=== PATIENT | female | born 1975 | race Caucasian/White ===

== ENCOUNTER 2017-07-21 09:20 | Inpatient (IN) | payer OTHER, BC ==
[2017-07-07 09:55] VITALS: BMI 35.0
--- NOTE | 2017-07-07 10:16 | PAT Medication Instructions ---
Service Date Jul 07, 2017. Current Home Medication List Fluticasone Propionate (Nasal) (Flonase Allergy Relief), 2 SPRAYS PO PRN Multivitamin (Multivitamin), 1 TAB PO for AM Omeprazole (Prilosec), 40 MG PO BID Medication Instructions For Your Scheduled Surgery - Hold the following medications the morning of surgery: Multivitamin (Multivitamin), 1 TAB PO AM - Take the following medications the morning of surgery with a sip of water OTHERWISE NOTHING TO EAT OR DRINK AFTER MIDNIGHT: Omeprazole (Prilosec), 40 MG PO BID Fluticasone Propionate (Nasal) (Flonase Allergy Relief), 2 SPRAYS PO PRN (if needed) - Take the following medications as scheduled the night before surgery: Omeprazole (Prilosec), 40 MG PO BID Fluticasone Propionate (Nasal) (Flonase Allergy Relief), 2 SPRAYS PO PRN If you have any questions please call us at [phone] or [phone] or [phone]
--- NOTE | 2017-07-07 11:03 | DIAGNOSTIC IMAGING REPORT ---
CHEST PREADMISSION(PA/LAT) CLINICAL HISTORY: 42 years-old Female presenting with permission chest x-ray. TECHNIQUE: PA and lateral views of the chest were obtained. COMPARISON: 05/29/2015. FINDINGS: Cardiomediastinal silhouette normal. Lungs and pleural spaces clear. Osseous structures normal. Upper abdomen normal. IMPRESSION: 1. No acute cardiopulmonary disease. Electronically signed by: Jc Lal M.D. 07/07/2017 11:01 AM Dictated Date/Time: 07/07/2017 11:01 AM
[2017-07-07 11:20] LABS: BASO % 0.2 %; BASO ABS # 0.02 K/uL (0-0.2); COMPLETE YES; EOS % 2.7 %; IG% 0.5 %; LYMPH % 23.3 %; LYMPH ABS # 2.32 K/uL (1.2-3.4); MEAN CELL VOLUME 87.6 fL (80-100); MEAN CORPUSCULAR HEMOGLOBIN 29.7 pg (25-34); MEAN CORPUSCULAR HGB CONC 33.9 g/dl (32-36); MEAN PLATELET VOLUME 9.2 fL (7.4-10.4); MONO % 6.3 %; PLATELET COUNT 287 K/uL (130-400); RED BLOOD COUNT 4.34 M/uL (4.2-5.4); WHITE BLOOD COUNT 9.96 K/uL (4.8-10.8)
[2017-07-07 11:22] LABS: URINE APPEARANCE CLEAR (CLEAR); URINE BILIRUBIN NEG (NEG); URINE COLOR YELLOW; URINE NITRITE NEG (NEG); URINE SPECIFIC GRAVITY 1.018 (1.000-1.030); UROBILINOGEN NEG (NEG); ZZUR CULT IF INDIC CLEAN CATCH NO
[2017-07-07 11:26] LABS: MANUAL MICROSCOPIC REQUIRED? NO; REVIEW REQ? NO
[2017-07-07 11:33] LABS: BUN/CREATININE RATIO 14.3 (10-20); CALCIUM 9.3 mg/dl (8.5-10.1); CREATININE 0.7 mg/dl (0.60-1.20); POTASSIUM 4.2 mmol/L (3.5-5.1)
[~2017-07-21] VITALS: Ht 177.8 cm; Wt 110.1 kg
[2017-07-21] VITALS (7 sets, daily range): BP systolic 99–151; BP diastolic 64–81; PULSE 54–76; TEMP 36.4–36.5; O2SAT 96–100; Ht 177.8 cm; Wt 110.1 kg
[~2017-07-21 09:20] MED LIST: CEFAZOLIN 2000 MG/60 ML D5W IV SCH; FLUT0.15 PO; LACTATED RINGER'S 1000ML 1,000 ML IV SCH; MULT-506 PO; PRLSR20 PO
[2017-07-21] MEDS ORDERED: FENTANYL CITRATE INJ 50 MCG/1 ML 2 ML VIAL ONE ×3 (11:26→13:11)
[2017-07-21] MEDS ORDERED: MIDAZOLAM HCL 1 MG/ML 2ML VIAL ONE (11:26)
--- NOTE | 2017-07-21 11:36 | History & Physical Bridge Note ---
H&P Re-Evaluation Bridge Note: I have examined the patient, reviewed the History & Physical and in the interval since the performance of the History & Physical I have noted the following changes of clinical significance: No changes noted
--- NOTE | 2017-07-21 11:38 | History and Physical ---
History & Physical Date Jul 21, 2017. Chief Complaint Back and leg pain History of Present Illness The patient is a 42 year old female with complaints of back and leg pain Past Medical/Surgical History Medical Problems: (1) Acute low back pain (2) Anxiety (3) Dental infection (4) Esophageal obstruction due to food impaction (5) Esophageal obstruction due to food impaction (6) Food impaction of esophagus (7) Ovarian Cyst Nec/Nos (8) Peptic Ulcer Nos (9) Pneumonia, Organism Nos (10) Pyelonephritis Nos (11) RUQ abdominal pain (12) Schatzki's ring (13) Sinus infection (14) Urin Tract Infection Nos Additional History Hepatic Disease: No Endocrine Disorder: No Kidney Disease: No Hypertension: No Heart Disease: No Bleeding Tendencies: No Infectious Diseases: No Allergies Coded Allergies: Carrot (Verified Allergy, Unknown, GI SYMPTOMS, 07/21/17) Chicken Allergy (Verified Allergy, Unknown, GI UPSET, 07/21/17) Creston Oil (Verified Allergy, Unknown, GI SYMPTOMS, 07/21/17) Grape (Verified Allergy, Unknown, GI SYMPTOMS, 07/21/17) NO KNOWN DRUG ALLERGIES (Verified Allergy, Unknown, NONE, 07/21/17) Potato (Verified Allergy, Unknown, GI SYMPTOMS, 07/21/17) Home Medications Scheduled Fluticasone Propionate (Nasal) (Flonase Allergy Relief), 2 SPRAYS PO PRN Omeprazole (Prilosec), 40 MG PO BID Scheduled PRN Multivitamin (Multivitamin), 1 TAB PO for AM Physical Examination Skin: warm/dry, no rash Eyes: normal inspection, EOMI, sclerae normal ENT: normal ENT inspection, pharynx normal Head: normocephalic, atraumatic Neck: supple, no adenopathy, trachea midline Respiratory/Chest: lungs clear, normal breath sounds, no respiratory distress Cardiovascular: regular rate, rhythm, no edema, no murmur Abdomen / GI: normal bowel sounds, non tender Back: normal inspection Extremities: normal inspection, normal range of motion Neurologic/Psych: no motor/sensory deficits, alert, normal reflexes, oriented x 3 Diagnosis Lumbar spinal stenosis Plan of Treatment Lumbar decompression fusion L5-S1
[2017-07-21] MEDS ORDERED: BUPIVACAINE/EPINEPHRINE 0.5% MPF 1:200,000 30 ML VIAL ONE (12:02)
[2017-07-21] MEDS ORDERED: BACITRACIN 50000 UNIT VIAL ONE (12:02)
[2017-07-21] MEDS ORDERED: HYDROmorphone INJ 2 MG/ML SYR/VIAL ONE ×2 (12:33→13:42)
[2017-07-21] MEDS ORDERED: ROCURONIUM BROMIDE 10 MG/ML 5 ML VIAL IV ONE (12:54)
[2017-07-21] MEDS ORDERED: PROPOFOL IV EMULSION 10 MG/ML 20 ML VIAL IV ONE (12:54)
[2017-07-21] MEDS ORDERED: DEXAMETHASONE SOD INJ 4 MG/ML VIAL ONE (12:54)
[2017-07-21] MEDS ORDERED: LIDOCAINE HCL 2% 2 ML VIAL (20MG/ML) ONE (12:54)
[2017-07-21] MEDS ORDERED: ONDANSETRON INJ 2 MG/ML 2 ML VIAL ONE (12:54)
[2017-07-21] MEDS ORDERED: FLOSEAL HEMOSTATIC MATRIX 10ML TOP ONE (13:35)
[2017-07-21] MEDS ORDERED: SODIUM CHLORIDE 0.9% 1000ML 1,000 ML IV SCH (13:42)
[2017-07-21] MEDS ORDERED: KETOROLAC TROMETHAMINE 30 MG/ML VIAL ONE (13:43)
[2017-07-21] MEDS ORDERED: GLYCOPYRROLATE INJ 0.2 MG/ML VIAL ONE (13:43)
[2017-07-21] MEDS ORDERED: NEOSTIGMINE METHYLSULFATE 1 MG/ML 10ML VIAL ONE (13:43)
[2017-07-21] MEDS ORDERED: hydrOXYzine HCL 25 MG TAB PO PRN (13:45)
[2017-07-21] MEDS ORDERED: SOD PHOSPHATE/SOD BIPHOSPHATE ENEMA 132 ML BTL PR PRN (13:45)
[2017-07-21] MEDS ORDERED: DO NOT ADMINISTER PNEUMOCOCCAL VACCINE PRN ×2 (13:45)
[2017-07-21] MEDS ORDERED: PROMETHAZINE HCL INJ 12.5 MG in SODIUM CHLORIDE 0.9% 50ML 50 ML IV PRN ×2 (13:45→14:15)
[2017-07-21] MEDS ORDERED: ALUMINUM/MAGNESIUM SUSP 30 ML UDC PO PRN (13:45)
[2017-07-21] MEDS ORDERED: ACETAMINOPHEN 500 MG TAB PO PRN (13:45)
[2017-07-21] MEDS ORDERED: ATROPINE SULFATE 0.1 MG/ML 5ML SYR IV PRN (13:45)
[2017-07-21] MEDS ORDERED: MAGNESIUM HYDROXIDE SUSP 30 ML UDC PO PRN (13:45)
[2017-07-21] MEDS ORDERED: LORAZEPAM 0.5 MG TAB PO PRN (13:45)
[2017-07-21] MEDS ORDERED: NALOXONE HCL 0.4 MG/1 ML VIAL/CARP IV PRN ×2 (13:45)
[2017-07-21] MEDS ORDERED: BISACODYL 10 MG SUPP PR PRN (13:45)
[2017-07-21] MEDS ORDERED: METOCLOPRAMIDE HCL INJ 5 MG/ML 2 ML VIAL IV PRN (13:45)
[2017-07-21] MEDS ORDERED: DO NOT ADMINISTER FLU VACCINE PRN ×3 (13:45)
[2017-07-21] MEDS ORDERED: ONDANSETRON INJ 2 MG/ML 2 ML VIAL IV PRN (13:45)
[2017-07-21] MEDS ORDERED: FLUTICASONE PROPIONATE NA SPR 16 GM BTL PRN (13:45)
[2017-07-21] MEDS ORDERED: LORAZEPAM INJ 0.5 MG in SYRINGE 0 ML IV PRN (13:45)
[2017-07-21] MEDS ORDERED: ACETAMINOPHEN IV 100 ML IV PRN (13:45)
[2017-07-21] MEDS ORDERED: FAMOTIDINE 20 MG TAB PO PRN (13:45)
[2017-07-21] MEDS ORDERED: LABETALOL HCL IV 5 MG/ML 20ML IV PRN (13:45)
--- NOTE | 2017-07-21 13:48 | [facility] Operative Report ---
Operative Report Operative Date Jul 21, 2017. Pre-Operative Diagnosis Lumbar Spinal Stenosis Post-Operative Diagnosis Lumbar Spinal Stenosis Procedure(s) Performed #1 lumbar decompression medial facetectomy foraminotomies L5-S1. #2 posterior spinal fusion L5-S1. #3 placement posterior instrumentation L5-S1. #4 interbody fusion L5-S1. #5 placement peek cage 12 x 22 mm L5-S1. #6 placement locally harvested morcellized autograft in the posterior lateral gutters. #7 placement of ostial amp bone graft in the interbody space and posterior lateral gutters. Surgeon Dr. Whitman Blow Mold Operator Surgeon(s) ALISA Avelar Estimated Blood Loss 125ml Findings Lumbar spinal stenosis Specimens none per surgeon Description of Procedure Patient was met with preoperatively case discussed all questions are dressed. After informed consent patient was taken to the operative suite and underwent intubation placed in a prone position on the Bland table top Olaf frame. All bony prominences were well-padded eyes inspected to ensure no external pressure. This point the lumbar spines prepped draped in the normal sterile fashion. Sharp dissection with the assistance of Bovie cautery was performed onto an exposing the lamina and transverse processes of L5 and the sacral alar bilaterally. From a caudal to cephalad fashion complete laminectomy of L5 was performed including medial facetectomies foraminotomies. Pedicle screws were then placed in L5 and S1 levels bilaterally with assistance of fluoroscopy and the probably size carlos placed through a transforaminal approach on the left complete discectomy of L5-S1 was performed and plate created to subcortical bleeding bone and a 12 x 22 mm peek cage filled with ostial amp tapped into position. The rods were then compressed locked and final position bilaterally. The transverse processes of L5 and sacral alar burred to subcortical bleeding bone. Remaining ostial amp and local harvested morcellized autograft was placed in the posterior gutters. 15 round THOMAS drain inserted. Incision closed with 1 Vicryl in the fascia 2-0 Vicryl subcutaneous C 4 Monocryl for final skin closure Steri-Strip sterile dressing placed patient we can taken to PACU stable condition. Please note Mable Carson was present throughout the entire procedure involved in patient positioning complex portions of the surgery and final skin closure. I attest to the content of the Intraoperative Record and any orders documented therein. Any exceptions are noted below.
--- NOTE | 2017-07-21 13:52 | DIAGNOSTIC IMAGING REPORT ---
Radiology LUMBAR SPINE 2 OR 3 VIEW CLINICAL HISTORY: 42 years-old Female presenting with L5-S1 TRANSFORAMINAL LUMBAR INTERBODY FUSION. TECHNIQUE: 2 fluoroscopic spot image(s) obtained as part of an intraoperative procedure. COMPARISON: MRI from 03/22/2017. FINDINGS/IMPRESSION: Interval bilateral transpedicular plate and screw fixation of L5-S1 with discectomy and interbody spacer. L5 laminectomy defect also suggested. Normal anatomic alignment. Please see surgical report for further details. Fluoroscopy dosage (mGy): Not available. Fluoroscopy time: 15 seconds. Number of fluoroscopic spot images: 2. Electronically signed by: Jc Lal M.D. 07/21/2017 1:51 PM Dictated Date/Time: 07/21/2017 1:50 PM
[2017-07-21] MEDS ORDERED: METOCLOPRAMIDE HCL INJ 5 MG/ML 2 ML VIAL ONE (14:06)
[2017-07-21] MEDS ORDERED: SCOPOLAMINE 1.5 MG TDSY TD ONE (14:08)
[2017-07-21] MEDS ORDERED: HYDROmorphone HCL 0.5MG/ML 50 ML CASSETTE ONE (14:09)
[2017-07-21] MEDS: HYDROmorphone INJ 2 MG/ML SYR/VIAL IV PRN ×2 (14:29→14:42)
[2017-07-21] MEDS: HYDROmorphone HCL 0.5MG/ML 50 ML CASSETTE IV PRN ×3 (14:34→18:59)
--- NOTE | 2017-07-21 14:42 | Anesthesiology Progress Note ---
Anesthesia Post Op Note Date & Time Jul 21, 2017 at 14:42 Vital Signs Vital Signs Past 12 Hours Date Time Temp Pulse Resp B/P (MAP) Pulse Ox O2 Delivery O2 Flow Rate FiO2 07/21/17 14:36 120/64 07/21/17 14:34 52 16 07/21/17 14:34 53 16 100 07/21/17 14:32 103/57 07/21/17 14:29 55 15 07/21/17 14:29 55 15 100 07/21/17 14:27 102/63 07/21/17 14:24 70 17 100 07/21/17 14:24 70 17 07/21/17 14:21 98/57 07/21/17 14:19 72 15 100 07/21/17 14:19 73 15 07/21/17 14:16 97/56 07/21/17 14:14 67 20 07/21/17 14:14 67 20 94 07/21/17 14:11 120/63 07/21/17 14:09 74 17 07/21/17 14:09 74 17 95 07/21/17 14:06 119/87 07/21/17 14:05 120/71 07/21/17 14:04 85 07/21/17 14:04 85 91 07/21/17 14:04 36.3 84 16 119/87 98 Oxymask 10 07/21/17 10:00 36.5 73 20 151/81 100 Room Air Notes Mental Status: alert / awake / arousable, participated in evaluation Pt Amnestic to Procedure: Yes Nausea / Vomiting: adequately controlled, improving with treatment Pain: adequately controlled Airway Patency, RR, SpO2: stable & adequate BP & HR: stable & adequate Hydration State: stable & adequate Anesthetic Complications: no major complications apparent
[2017-07-21] MEDS: LACTATED RINGER'S 1000ML 1,000 ML IV SCH ×2 (16:07→20:40)
[2017-07-21] MEDS: ONDANSETRON INJ 2 MG/ML 2 ML VIAL IV PRN (18:32)
[2017-07-21] MEDS: CEFAZOLIN IV 2,000 MG in DEXTROSE 5% 50ML 50 ML IV SCH (20:31)
[2017-07-21] MEDS: PANTOprazole SOD 40 MG TAB PO SCH (20:32)
[2017-07-21] MEDS: DOCUSATE SODIUM/SENNA 50/8.6MG TAB PO SCH (20:32)
[2017-07-21] MEDS: DEXAMETHASONE INJ 6 MG in SYRINGE 0 ML IV SCH (20:32)
[2017-07-22] MEDS: LACTATED RINGER'S 1000ML 1,000 ML IV SCH (03:04)
[2017-07-22] MEDS: CEFAZOLIN IV 2,000 MG in DEXTROSE 5% 50ML 50 ML IV SCH (03:04)
[2017-07-22 03:06] VITALS: BP 94/60; PULSE 50; TEMP 36.7; O2SAT 94
[2017-07-22] MEDS: DEXAMETHASONE INJ 6 MG in SYRINGE 0 ML IV SCH ×2 (03:58→13:12)
[2017-07-22] MEDS ORDERED: NURSING VERBAL MED ORDER ONE (06:00)
[2017-07-22] MEDS ORDERED: HYDROmorphone INJ 1 MG/ML SYR IV PRN (06:00)
[2017-07-22] MEDS ORDERED: DC PCA SCH (06:00)
[2017-07-22] MEDS ORDERED: HYDROmorphone INJ 0.5 MG/0.5 ML SYR IV PRN (06:00)
[2017-07-22 06:01] LABS: COMPLETE YES; HEMATOCRIT 35.1 % (37-47); IG% 0.2 %; LYMPH % 5.6 %; LYMPH ABS # 0.78 K/uL (1.2-3.4); MEAN CELL VOLUME 87.8 fL (80-100); MEAN CORPUSCULAR HEMOGLOBIN 28.8 pg (25-34); MEAN CORPUSCULAR HGB CONC 32.8 g/dl (32-36); MEAN PLATELET VOLUME 9.8 fL (7.4-10.4); MONO % 3.8 %; NEUT % 90.4 %; PLATELET COUNT 223 K/uL (130-400); WHITE BLOOD COUNT 13.83 K/uL (4.8-10.8)
[2017-07-22 06:37] LABS: BUN/CREATININE RATIO 18.8 (10-20); CALCIUM 8.5 mg/dl (8.5-10.1); CREATININE 0.59 mg/dl (0.60-1.20)
[2017-07-22 07:15] VITALS: BP 104/66; PULSE 51; TEMP 36.6; O2SAT 98
[2017-07-22] MEDS: ONDANSETRON INJ 2 MG/ML 2 ML VIAL IV PRN (07:24)
[2017-07-22] MEDS: PANTOprazole SOD 40 MG TAB PO SCH ×2 (07:24→21:25)
--- NOTE | 2017-07-22 08:24 | Anesthesiology Progress Note ---
Anesthesia Post Op Note Date & Time Jul 22, 2017 at 08:22 Vital Signs Pain Intensity: 7.5 Vital Signs Past 12 Hours Date Time Temp Pulse Resp B/P (MAP) Pulse Ox O2 Delivery O2 Flow Rate FiO2 07/22/17 07:45 Room Air 07/22/17 07:15 36.6 51 19 104/66 (79) 98 Room Air 07/22/17 03:06 36.7 50 16 94/60 (71) 94 Room Air 07/21/17 23:20 36.5 76 18 99/64 (76) 96 Room Air Notes Mental Status: alert / awake / arousable, participated in evaluation Pt Amnestic to Procedure: Yes Nausea / Vomiting: adequately controlled, improving with treatment Pain: adequately controlled Airway Patency, RR, SpO2: stable & adequate BP & HR: stable & adequate Hydration State: stable & adequate Anesthetic Complications: no major complications apparent pt c/o N/V related to severe pain due to not being able to tolerate narcotics. Improved with pain improvement s/p antiinflammatories per patient. N/V not r/t anesthetic.
[2017-07-22] MEDS ORDERED: RXC5 PO (09:23)
--- NOTE | 2017-07-22 09:24 | Discharge Instructions ---
Discharge Instructions Date of Service Jul 22, 2017. Admission Reason for Admission: Spinal Stenosis Discharge Discharge Diagnosis / Problem: lumbar stenosis Discharge Goals Goal(s): Improve function Activity Recommendations Activity Limitations: per Instructions/Follow-up section . Instructions / Follow-Up Instructions / Follow-Up ACTIVITY RECOMMENDATIONS: SELF CARE INSTRUCTIONS AFTER THORACIC/LUMBAR FUSIONS 1. You may walk to your tolerance. It is good exercise for your legs and back. Expect some back and intermittent leg aches and pains. 2. You may perform "counter-top" level activities (make a sandwich, janki with a project, etc.). 3. No bending or lifting of more than 10 pounds or back twisting of any nature (roll like a log when turning in bed). 4. You may ride in a car for 20-30 minutes at a time. No driving until after your first visit with your doctor. 5. Frequent changes of position and restricting sitting to 30 minutes at a time will help limit the amount of back spasms and stiffness you may experience. 6. You may discontinue the use of ambulatory aids (cane, crutches, etc.) once your strength and confidence allow. 7. You may loan administrator the shower and let water strike your incision when you arrive home at least once daily. Do not take a tub bath, sit in a hot tub or go into a swimming pool until after your first recheck in the office. SPECIAL CARE INSTRUCTIONS: VERY IMPORTANT TO READ AND REVIEW A. Your surgical incision has been closed with a cosmetic suture under the skin that will dissolve in about 6 weeks. In 14 days, you can use a pair of clean scissors and cut the suture that is left outside of the skin at the ends of your incision. 1. The small skin tapes can be removed 7 days after surgery if they have not fallen off by that point. 2. You may keep the wound open to air as much as possible to promote healing after post-op day number 5 unless told otherwise by your doctor. 3. If you think the wound looks like it is becoming infected (redness or worsening drainage) and/or you are experiencing fever, chill or worsening back pain and muscle spasms, contact the office so that we may evaluate you as soon as possible. B. Complications are uncommon, but please contact us if you have any signs or symptoms of: 1. wound infection (fever higher than 102.5 degrees F, redness, separation of wound, drainage, or increasing pain from the incision) 2. blood clots in legs (pain, swelling, redness and warmth in legs) 3. urinary tract infection (fever higher than 102.5 degrees F, burning upon urination or increased frequency of urination) 4. nerve problems (inability to walk on your toes or heels, numbness, loss of bowel or bladder control) 5. any other symptoms that concern you C. Please call the office at if you have any concerns or questions about your operation or recovery. D. No smoking! Smoking drastically decreases the chance of a solid fusion. E. Do not take any anti-inflammatory medications (Indocin, Advil, Motrin, Aspirin, Naprosyn, etc.) as these may inhibit the chance of a solid fusion. Tylenol is okay to take for pain. MANAGING PAIN AFTER SPINAL SURGERY 1. Narcotic medication is intended for short-term use and will be provided for surgical pain. Surgical pain usually lasts for a period of 4-6 weeks. Narcotic medication includes Percocet, Vicodin, Darvocet, Tylenol #3 or Lortab. 2. Longer-term pain is more appropriately treated with non-narcotic medication such as Tylenol ES. 3. Muscle spasm is not appropriately treated with narcotics. Muscle relaxers such as Soma, Flexeril or Skelaxin can be used along with Tylenol ES. 4. Remember that we all live with some "aches and pains". This is not unusual or uncommon after an injury or as we get older. a. Back pain is expected and may include muscle spasms for 4 to 6 weeks after surgery. The pain should gradually improve. If the pain worsens for no apparent reason, please contact the office. b. Intermittent leg pain may also be experienced and should not be concerned about unless it worsens for no apparent reason. If so, please contact the office. 5. We will provide appropriate medication within the normal guidelines of their prescribed use. We will also be very cautious and aware of potential abuse and extended duration of patients' medication needs. a. Pain medications are for your comfort and to assist with sleep and rest so that the tissue can heal. They are not provided in order to return to normal activity and should not be used through the day. To do so or worsening pain at night can result from ongoing tissue damage and development of tolerance to the prescribed medicine. 6. Please allow 2-3 days to process refills. Prescriptions will not be mailed but must be picked up at the office. FOLLOW UP VISIT: Keep your scheduled follow-up appointment. Any questions, please call the office at . Current Hospital Diet Patient's current hospital diet: Regular Diet Discharge Diet Recommended Diet: Regular Diet Procedures Procedures Performed: #1 lumbar decompression medial facetectomy foraminotomies L5-S1. #2 posterior spinal fusion L5-S1. #3 placement posterior instrumentation L5-S1. #4 interbody fusion L5-S1. #5 placement peek cage 12 x 22 mm L5-S1. #6 placement locally harvested morcellized autograft in the posterior lateral gutters. #7 placement of ostial amp bone graft in the interbody space and posterior lateral gutters. Pending Studies Studies pending at discharge: no Medical Emergencies . Who to Call and When: Medical Emergencies: If at any time you feel your situation is an emergency, please call 911 immediately. . Non-Emergent Contact Non-Emergency issues call your: Primary Care Provider . "Provider Documentation" section prepared by Mike Whitman. . VTE Core Measure Inpt VTE Proph given/why not?: Katelyn uJdd, KANE's
[2017-07-22] MEDS: OXYCODONE HCL IR 5 MG TAB (IMMEDIATE RELEASE) PO PRN ×4 (09:48→23:41)
[2017-07-22 11:37] VITALS: BP 112/74; PULSE 55; O2SAT 100
--- NOTE | 2017-07-22 12:33 | Progress Note ---
Progress Note Date of Service Jul 22, 2017. Progress Note Patient's back pain is controlled. Leg pain markedly improved. Vital signs are stable. THOMAS drain decreasing appropriate. On exam she is ambulating halls comfortably as good strength testing. Assessment status post lumbar decompression fusion. Planned this time continue advance physical therapy anticipate possible home tomorrow.
[2017-07-22 15:01] VITALS: BP 132/84; PULSE 69; TEMP 36.8; O2SAT 100
[2017-07-22] MEDS: DOCUSATE SODIUM/SENNA 50/8.6MG TAB PO SCH (21:00)
[2017-07-22 23:15] VITALS: BP 106/66; PULSE 59; TEMP 36.7; O2SAT 98
[2017-07-23] MEDS ORDERED: POLYETHYLENE (MIRALAX) 17 GM PACK PO SCH (06:00)
[2017-07-23 06:01] VITALS: BP 106/69; PULSE 55; TEMP 36.7; O2SAT 97
[2017-07-23] MEDS: PANTOprazole SOD 40 MG TAB PO SCH (07:15)
[2017-07-23] MEDS: OXYCODONE HCL IR 5 MG TAB (IMMEDIATE RELEASE) PO PRN (07:15)
--- NOTE | 2017-07-23 09:19 | Discharge Summary ---
Orthopedic Discharge Summary Admission Date/Reason Jul 21, 2017 at 12:00 Spinal Stenosis. Discharge Date/Disposition Jul 23, 2017 Home Diagnosis Principal Diagnosis: Lumbar spinal stenosis Admission Physical Exam As per Admitting History & Physical. Hospital Course Patient underwent lumbar decompression fusion tolerated this well as taken to the orthopedic floor postoperatively. Postoperative day #1 to is up in amatory leg pain markedly improved progressed through postop day #2. THOMAS drain decreasing appropriate. Subsequently discharged home. Discharge orders and instructions found the chart for further review. Discharge Instructions Please refer to the electronic Patient Visit Report (Discharge Instructions) for additional information.
[2017-07-23 09:28] VITALS: BP 106/69; PULSE 55; TEMP 36.7; O2SAT 97
== END 2017-07-23 10:50 | disposition home or self-care (01) | DRG 460 ==
LOC: C.ACU 09:20 → C.3E 12:00 → ENRESERV 15:03
PROVIDERS: ADMIT Orthopaedic Surgery Orthopaedic Surgery of the Spine; ATTEND Orthopaedic Surgery Orthopaedic Surgery of the Spine
PROC: 0SG30AJ Fusion of Lumbosacral Joint with Interbody Fusion Device, Posterior Approach, Anterior Column, Open Approach (ICD-10-PCS; principal; 2017-07-21 11:45)
PROC: 0SG3071 Fusion of Lumbosacral Joint with Autologous Tissue Substitute, Posterior Approach, Posterior Column, Open Approach (ICD-10-PCS; principal; 2017-07-21 11:45)
PROC: 0ST40ZZ Resection of Lumbosacral Disc, Open Approach (ICD-10-PCS; principal; 2017-07-21 11:45)
DX: M48.06 Spinal stenosis, lumbar region (principal); Z79.899 Other long term (current) drug therapy; Z87.01 Personal history of pneumonia (recurrent); Z87.440 Personal history of urinary (tract) infections; Z87.11 Personal history of peptic ulcer disease

== ENCOUNTER 2017-07-25 15:54 | Inpatient (IN) | payer OTHER, BC ==
[~2017-07-25] VITALS: Ht 177.8 cm; Wt 109.0 kg
[~2017-07-25 15:54] MED LIST changes: -CEFAZOLIN 2000 MG/60 ML D5W IV SCH; -LACTATED RINGER'S 1000ML 1,000 ML IV SCH; +RXC5 PO
[2017-07-25] MEDS ORDERED: HYDROmorphone INJ 1 MG/ML SYR IV STA ×3 (16:46→23:14)
[2017-07-25] MEDS ORDERED: SODIUM CHLORIDE 0.9% 1000ML 1,000 ML IV ONE (16:46)
[2017-07-25] MEDS ORDERED: ONDANSETRON INJ 2 MG/ML 2 ML VIAL IV STA (16:46)
[2017-07-25] MEDS ORDERED: ONDA8TAB6 PO (16:51)
--- NOTE | 2017-07-25 16:52 | EMERGENCY ROOM VISIT NOTE ---
History Report prepared by Godfrey: Nahid Humphrey Under the Supervision of: Dr. Gianni Kiran M.D. First contact with patient: 16:35 Chief Complaint: FEVER Stated Complaint: PAIN, NAUSEA, FEVER History of Present Illness The patient is a 42 year old female who presents to the Emergency Room with complaints of a fever that began yesterday. The patient's temperature has been fluctuating between 37.2 C and 38.9 C. Her temperature currently is 37.3 C. 1 week ago, the patient had an L5-S1 fusion procedure. Yesterday, the pain in her back began to worsen. She also began to develop a fever at this time as well. She has been taking Tylenol to try to alleviate her pain and reduce her fever. She is nauseated and is experiencing episodes of vomiting. Her wound is only draining small amounts today. She is also having abdominal cramping from vomiting and body aches. She denies any chest pain. Her back pain worsens with deep inhalation. Source of History: patient Onset: yesterday Position: other (Global) Symptom Intensity: 37.2 C - 38.8 C Quality: other (Fever) Timing: waxes/wanes Associated Symptoms: + nausea, + vomiting, + abdominal pain (cramping), + back pain, No chest pain Review of Systems See HPI for pertinent positives & negatives. A total of 10 systems reviewed and were otherwise negative. Past Medical & Surgical Medical Problems: (1) Acute low back pain (2) Anxiety (3) Dental infection (4) Esophageal obstruction due to food impaction (5) Esophageal obstruction due to food impaction (6) Food impaction of esophagus (7) Lumbar stenosis with neurogenic claudication (8) Ovarian Cyst Nec/Nos (9) Peptic Ulcer Nos (10) Pneumonia, Organism Nos (11) Pyelonephritis Nos (12) RUQ abdominal pain (13) Schatzki's ring (14) Sinus infection (15) Urin Tract Infection Nos Family History Diabetes mellitus FH: gallbladder disease Kidney disease Kidney stones Social History Smoking Status: Never Smoker Alcohol Use: occasionally Drug Use: none Marital Status: in relationship Housing Status: lives with family Occupation Status: employed Current/Historical Medications Scheduled Omeprazole (Prilosec), 40 MG PO BID Scheduled PRN Ondansetron Hcl (Zofran), 8 MG PO for Nausea Oxycodone HCl (Oxycodone HCl), 5-10 MG PO Q4H PRN for Moderate - severe pain Allergies Coded Allergies: NO KNOWN DRUG ALLERGIES (Verified Allergy, Unknown, NONE, 07/25/17) Carrot (Verified Adverse Reaction, Unknown, GI SYMPTOMS, 07/25/17) Chicken Allergy (Verified Adverse Reaction, Unknown, GI UPSET, 07/25/17) [place] Oil (Verified Adverse Reaction, Unknown, GI SYMPTOMS, 07/25/17) Grape (Verified Adverse Reaction, Unknown, GI SYMPTOMS, 07/25/17) Potato (Verified Adverse Reaction, Unknown, GI SYMPTOMS, 07/25/17) Physical Exam Vital Signs Date Time Temp Pulse Resp B/P (MAP) Pulse Ox O2 Delivery O2 Flow Rate FiO2 07/25/17 23:31 76 18 122/58 92 Room Air 07/25/17 22:24 83 18 116/73 94 Room Air 07/25/17 20:23 78 18 108/65 98 Room Air 07/25/17 19:31 78 18 124/71 98 Room Air 07/25/17 18:24 83 18 107/54 94 Room Air 07/25/17 17:59 88 18 113/66 95 Room Air 07/25/17 17:13 Room Air 07/25/17 15:59 37.3 96 20 130/84 100 Room Air Physical Exam GENERAL: Patient is a healthy-appearing well-nourished female HEAD: Normocephalic atraumatic EYES: Ocular movements intact pupils equal and react to light OROPHARYNX mucous membranes are moist no exudates present no erythema or edema present NECK: Supple no nuchal rigidity CHEST: Good equal expansion LUNGS: Clear and equal to auscultation CARDIAC: Normal S1 and S2 ABDOMEN: Soft nontender no guarding BACK: Serosanguineous fluid from the surgical site on the lower back. Healing well. EXTREMITIES: No pain upon palpation normal muscle strength in all groups no clubbing cyanosis or edema NEURO: Patient is following commands and answering questions appropriately. Alert and oriented x3 Cranial Nerves 2-12 grossly intact Medical Decision & Procedures ER Provider Diagnostic Interpretation: Radiology results as stated below per my review and radiologist interpretation: CHEST ONE VIEW PORTABLE CLINICAL HISTORY: Sepsis. COMPARISON STUDY: Chest radiograph July 07, 2017. FINDINGS: The patient is moderately rotated. No pneumothorax or pleural effusion is present. There is apparent pulmonary vascular congestion. Study is compromised by suboptimal penetration with motion artifact. Cardiac size is at the upper limits of normal. Apparent hazy left basilar opacity is likely artifactual. IMPRESSION: 1. Rotated study with suboptimal penetration. 2. Prominent vasculature. This could be due to hypoventilatory study or pulmonary vascular congestion. 3. Apparent hazy left basilar opacity. Artifact is favored although consolidation could appear similar. Electronically signed by: Harjinder Branch M.D. 07/25/2017 5:39 PM Dictated Date/Time: 07/25/2017 5:37 PM (CHEST FOR PE) ANGIO WITH CT DOSE: 514.88 mGy.cm HISTORY: 42 years-old Female presents with acute fever with history of recent back surgery. Initial exam. TECHNIQUE: Multiple CTA images of the chest were obtained after the intravenous administration of 77 mL Optiray 320. Coronal and sagittal MIPS were obtained from the axial data set and were submitted for review. A dose lowering technique was utilized adhering to the principles of ALARA. COMPARISON: Chest CT 05/29/2015 and 06/05/2009. FINDINGS: CTA: Heart is normal in size without pericardial effusion. Thoracic aorta is normal in course and caliber without dissection or aneurysm. The pulmonary arterial tree appears unremarkable. CT CHEST: No dominant thyroid nodule is seen. No pathologically adenopathy by CT size criteria. There is no pneumothorax, pleural effusion or focal airspace consolidation. There is a focal 6 mm pulmonary nodule of the left lower lobe, unchanged dating back to 06/05/2009 suggesting benign etiology. The imaged upper abdominal structures are normal. The osseous structures appear intact. IMPRESSION: No acute intrathoracic abnormality identified, specifically no acute aortic pathology or evidence of pulmonary thromboembolic disease. The above report was generated using voice recognition software. It may contain grammatical, syntax or spelling errors. Electronically signed by: Olman Mosquera M.D. 07/25/2017 7:07 PM Dictated Date/Time: 07/25/2017 6:57 PM MRI OF THE LUMBAR SPINE WITHOUT CONTRAST CLINICAL HISTORY: Low back pain radiating into right lower extremity. Fever. Recent lumbar spine surgery. COMPARISON STUDY: Lumbar spine MRI March 22, 2017 and lumbar spine fluoroscopic images of July 21, 2017. TECHNIQUE: Utilizing a 1.5 [place] magnet and dedicated coil, multiplanar, multiecho imaging of the lumbar spine was performed without IV contrast. FINDINGS: For purposes of numbering on this exam, the L5-S1 disc space is assigned to axial image 27 of 30. There are post surgical findings consistent with an L5-S1 discectomy with interbody spacer placement. There are bilateral pedicle screws at the L5 and S1 levels. Note is made of a multiloculated laminectomy bed fluid collection at the left L5-S1 level that measures approximately 2.3 x 2.6 x 1 cm. Smaller adjacent components are noted. This has moderate mass effect upon the inferior thecal sac. Note is made of an additional intracanalicular T2 hyperintense, T1 hypointense fluid collection within the right posterolateral aspect of the canal extending from the L1-L3 levels. This collection measures approximately 5.3 x 1.4 x 0.6 cm. This has mass effect upon the adjacent nerve roots. This could be either subdural or epidural in location. No additional fluid collections are present. Vertebral body heights are maintained. Conus terminates at the T12-L1 level. Note is made of moderate distention of the bladder. IMPRESSION: 1. Status post L5-S1 discectomy and bilateral pedicle screw fusion with laminectomy. Multiloculated 2.6 x 2.3 x 1 cm laminectomy bed fluid collection with moderate mass effect upon the inferior thecal sac. This is nonspecific in the early postoperative setting and could reflect a seroma or pseudomeningocele. A resolving hematoma could appear similar. 2. Additional intracanalicular fluid collection within the right posterolateral aspect of the canal extending from the L1-L3 levels which measures approximately 5.3 x 1.4 x 0.6 cm. This collection appears to be subdural in location although an epidural fluid collection could appear similar. This is nonspecific and could reflect a pseudomeningocele/subdural hygroma seen in the setting of a dural injury. An epidural hematoma or less likely abscess could appear similar. Close clinical monitoring is recommended. If progressive symptoms, a short-term follow-up MRI is recommended. 3. Moderate distention of the bladder. Electronically signed by: Harjinder Branch M.D. 07/25/2017 10:55 PM Dictated Date/Time: 07/25/2017 10:34 PM Laboratory Results Test 07/25/17 00:00 07/25/17 17:30 07/25/17 18:24 Urine Color YELLOW Urine Appearance CLEAR (CLEAR) Urine pH 8.0 (4.5-7.5) Urine Specific [place] 1.016 (1.000-1.030) Urine Protein NEG (NEG) Urine Glucose (UA) NEG (NEG) Urine Ketones TRACE (NEG) Urine Occult Blood TRACE (NEG) Urine Nitrite NEG (NEG) Urine Bilirubin NEG (NEG) Urine Urobilinogen NEG (NEG) Urine Leukocyte Esterase NEG (NEG) Urine WBC (Auto) 0 /hpf (0-5) Urine RBC (Auto) 0-4 /hpf (0-4) Urine Hyaline Casts (Auto) 0 /lpf (0-5) Urine Epithelial Cells (Auto) 10-20 /lpf (0-5) Urine Bacteria (Auto) NEG (NEG) Erythrocyte Sedimentation Rate 23 mm/hr (0-21) Prothrombin Time 10.5 SECONDS (9.0-12.0) Prothromb Time International Ratio 1.0 (0.9-1.1) Activated Partial Thromboplast Time 25.0 SECONDS (21.0-31.0) Partial Thromboplastin Ratio 1.0 Total Bilirubin 0.9 mg/dl (0.2-1) Aspartate Amino Transf (AST/SGOT) 35 U/L (15-37) Alanine Aminotransferase (ALT/SGPT) 55 U/L (12-78) Alkaline Phosphatase 86 U/L (45-117) C-Reactive Protein 7.25 mg/dl (0-0.29) Total Protein 7.2 gm/dl (6.4-8.2) Albumin 3.5 gm/dl (3.4-5.0) Globulin 3.7 gm/dl (2.5-4.0) Albumin/Globulin Ratio 0.9 (0.9-2) Bedside Lactic Acid Venous 0.79 mmol/L (0.90-1.70) Labs reviewed by ED physician. Medications Administered Medications (Trade) Dose Ordered Sig/Naveen Route Start Time Stop Time Status Last Admin Dose Admin Sodium Chloride 1,000 ml @ 999 mls/hr Q1H1M ONCE IV 07/25/17 16:46 07/25/17 17:46 DC 07/25/17 17:46 999 MLS/HR Hydromorphone HCl (Dilaudid Inj) 1 mg NOW STAT IV 07/25/17 16:46 07/25/17 16:49 DC 07/25/17 17:46 1 MG Ondansetron HCl (Zofran Inj) 4 mg NOW STAT IV 10/2/17 16:46 07/25/17 16:49 DC 07/25/17 17:46 4 MG Promethazine HCl 25 mg/Sodium Chloride 51 ml @ 204 mls/hr NOW STAT IV 07/25/17 18:32 07/25/17 18:46 DC 07/25/17 18:57 204 MLS/HR Hydromorphone HCl (Dilaudid Inj) 1 mg NOW STAT IV 07/25/17 19:30 07/25/17 19:32 DC 07/25/17 19:41 1 MG Hydromorphone HCl (Dilaudid Inj) 1 mg NOW STAT IV 07/25/17 23:14 07/25/17 23:15 DC 07/25/17 23:24 1 MG ECG Indication: nausea Rate (beats per minute): 89 Rhythm: normal sinus Findings: no acute ischemic change, no ectopy ED Course 1635: Past medical records reviewed. The patient was evaluated in room C5. A complete history and physical examination was performed. 1646: Ordered Zofran Inj 4 mg IV, Dilaudid Inj 1 mg IV, Sodium Chloride 1000 ml @ 999 mls/hr 1832: Ordered Promethazine HCl 25 mg/Sodium Chloride 51 ml @ 204 mls/hr IV 1930: Ordered Dilaudid Inj 1 mg IV 2314: Ordered Dilaudid Inj 1 mg IV 2339: Upon reexamination the patient is resting. I discussed results and treatment plan with the patient. She verbalizes agreement and understanding. I spoke with Dr. Tam from the [facility]. The patient will be evaluated for further management. Medical Decision Differential diagnosis: Etiologies such as viral syndrome, otitis, pharyngitis, pneumonia, influenza, meningitis, urinary tract infection, sepsis, bacteremia, as well as others were entertained. This is a 42-year-old female who presents emergency Department with fever at home status post 7 days after her spinal surgery. The patient's pain is not under control. For this reason an IV was established, patient given normal saline bolus, 1 mg of Dilaudid 3. Based on the patient's chest x-ray she was sent for CAT scan of the chest. This did not show any evidence of pneumonia. PE. Her urine does not show any evidence of infection. She was sent for an MRI. I did discuss the MRI with [facility] who did agree to admit the patient. Patient and daughter were in agreement with the treatment plan. Medication Reconcilliation Current Medication List: was personally reviewed by me Blood Pressure Screening Patient's blood pressure: Normal blood pressure Blood pressure disposition: Did not require urgent referral Consults Time Called: [phone] Consulting Physician: Dr. Tam - [facility] Returned Call: [phone] I discussed the patient's case with Dr. Tam, he has agreed to evaluate the patient for further management and care. Impression Primary Impression: Low back pain Scribe Attestation The scribe's documentation has been prepared under my direction and personally reviewed by me in its entirety. I confirm that the note above accurately reflects all work, treatment, procedures, and medical decision making performed by me. Departure Information Dispostion Being Evaluated By Hospitalist Nicolas Miller M.D. (PCP) Forms HOME CARE DOCUMENTATION FORM, IMPORTANT VISIT INFORMATION, School Instructions, Work Instructions Patient Instructions ED Neck Back Pain General, Low Back Pain Self Care, [facility] Additional Instructions Follow up with Dr Whitman's office You received narcotic or benzodiazepene medication while in the emergency room today. This is an addictive medication that may cause drowziness as well as constipation. Do not drive, operate heavy machinery, or drink alcohol under the influence of this medication. You have been examined and treated today on an emergency basis only. This is not a substitute for, or an effort to provide, complete comprehensive medical care. It is impossible to recognize and treat all injuries or illnesses in a single emergency department visit. It is therefore important that you follow up closely with Dr Britt. Call as soon as possible for an appointment. Thank you for your time and consideration. I look forward to speaking with you again soon. Please don't hesitate to call us if you have any questions. Problem Qualifiers Primary Impression: Low back pain Chronicity: acute Back pain laterality: unspecified Sciatica presence: unspecified whether sciatica present Qualified Codes: M54.5 - Low back pain
--- NOTE | 2017-07-25 17:41 | DIAGNOSTIC IMAGING REPORT ---
CHEST ONE VIEW PORTABLE CLINICAL HISTORY: Sepsis. COMPARISON STUDY: Chest radiograph July 07, 2017. FINDINGS: The patient is moderately rotated. No pneumothorax or pleural effusion is present. There is apparent pulmonary vascular congestion. Study is compromised by suboptimal penetration with motion artifact. Cardiac size is at the upper limits of normal. Apparent hazy left basilar opacity is likely artifactual. IMPRESSION: 1. Rotated study with suboptimal penetration. 2. Prominent vasculature. This could be due to hypoventilatory study or pulmonary vascular congestion. 3. Apparent hazy left basilar opacity. Artifact is favored although consolidation could appear similar. Electronically signed by: Harjinder Branch M.D. 07/25/2017 5:39 PM Dictated Date/Time: 07/25/2017 5:37 PM
[2017-07-25 17:58] LABS: BASO % 0.1 %; BASO ABS # 0.01 K/uL (0-0.2); COMPLETE YES; EOS % 0.9 %; HEMATOCRIT 36.1 % (37-47); IG% 0.4 %; LYMPH % 24.5 %; LYMPH ABS # 2.55 K/uL (1.2-3.4); MEAN CELL VOLUME 88.5 fL (80-100); MEAN CORPUSCULAR HEMOGLOBIN 27.5 pg (25-34); MONO % 9.4 %; NEUT % 64.7 %; PLATELET COUNT 263 K/uL (130-400); RED BLOOD COUNT 4.08 M/uL (4.2-5.4); WHITE BLOOD COUNT 10.41 K/uL (4.8-10.8)
[2017-07-25] MEDS ORDERED: OPTIRAY 320 IV PRN (18:00)
[2017-07-25 18:09] LABS: PROTHROMBIN TIME (PATIENT) 10.5 SECONDS (9.0-12.0)
[2017-07-25 18:19] LABS: BUN/CREATININE RATIO 6.2 (10-20); CALCIUM 8.5 mg/dl (8.5-10.1); CREATININE 0.76 mg/dl (0.60-1.20); POTASSIUM 3.1 mmol/L (3.5-5.1)
[2017-07-25 18:22] LABS: ALB/GLOB RATIO 0.9 (0.9-2); C-REACTIVE PROTEIN 7.25 mg/dl (0-0.29)
[2017-07-25] MEDS ORDERED: PROMETHAZINE HCL INJ 25 MG in SODIUM CHLORIDE 0.9% 50ML 50 ML IV STA (18:32)
--- NOTE | 2017-07-25 19:08 | DIAGNOSTIC IMAGING REPORT ---
(CHEST FOR PE) ANGIO WITH CT DOSE: 514.88 mGy.cm HISTORY: 42 years-old Female presents with acute fever with history of recent back surgery. Initial exam. TECHNIQUE: Multiple CTA images of the chest were obtained after the intravenous administration of 77 mL Optiray 320. Coronal and sagittal MIPS were obtained from the axial data set and were submitted for review. A dose lowering technique was utilized adhering to the principles of ALARA. COMPARISON: Chest CT 05/29/2015 and 06/05/2009. FINDINGS: CTA: Heart is normal in size without pericardial effusion. Thoracic aorta is normal in course and caliber without dissection or aneurysm. The pulmonary arterial tree appears unremarkable. CT CHEST: No dominant thyroid nodule is seen. No pathologically adenopathy by CT size criteria. There is no pneumothorax, pleural effusion or focal airspace consolidation. There is a focal 6 mm pulmonary nodule of the left lower lobe, unchanged dating back to 06/05/2009 suggesting benign etiology. The imaged upper abdominal structures are normal. The osseous structures appear intact. IMPRESSION: No acute intrathoracic abnormality identified, specifically no acute aortic pathology or evidence of pulmonary thromboembolic disease. The above report was generated using voice recognition software. It may contain grammatical, syntax or spelling errors. Electronically signed by: Olman Mosquera M.D. 07/25/2017 7:07 PM Dictated Date/Time: 07/25/2017 6:57 PM
[2017-07-25 19:55] LABS: URINE APPEARANCE CLEAR (CLEAR); URINE BILIRUBIN NEG (NEG); URINE COLOR YELLOW; URINE NITRITE NEG (NEG); URINE SPECIFIC GRAVITY 1.016 (1.000-1.030); UROBILINOGEN NEG (NEG); ZZUR CULT IF INDIC CLEAN CATCH NO
[2017-07-25 19:58] LABS: MANUAL MICROSCOPIC REQUIRED? NO; REVIEW REQ? YES
--- NOTE | 2017-07-25 22:57 | DIAGNOSTIC IMAGING REPORT ---
MRI OF THE LUMBAR SPINE WITHOUT CONTRAST CLINICAL HISTORY: Low back pain radiating into right lower extremity. Fever. Recent lumbar spine surgery. COMPARISON STUDY: Lumbar spine MRI March 22, 2017 and lumbar spine fluoroscopic images of July 21, 2017. TECHNIQUE: Utilizing a 1.5 [place] magnet and dedicated coil, multiplanar, multiecho imaging of the lumbar spine was performed without IV contrast. FINDINGS: For purposes of numbering on this exam, the L5-S1 disc space is assigned to axial image 27 of 30. There are post surgical findings consistent with an L5-S1 discectomy with interbody spacer placement. There are bilateral pedicle screws at the L5 and S1 levels. Note is made of a multiloculated laminectomy bed fluid collection at the left L5-S1 level that measures approximately 2.3 x 2.6 x 1 cm. Smaller adjacent components are noted. This has moderate mass effect upon the inferior thecal sac. Note is made of an additional intracanalicular T2 hyperintense, T1 hypointense fluid collection within the right posterolateral aspect of the canal extending from the L1-L3 levels. This collection measures approximately 5.3 x 1.4 x 0.6 cm. This has mass effect upon the adjacent nerve roots. This could be either subdural or epidural in location. No additional fluid collections are present. Vertebral body heights are maintained. Conus terminates at the T12-L1 level. Note is made of moderate distention of the bladder. IMPRESSION: 1. Status post L5-S1 discectomy and bilateral pedicle screw fusion with laminectomy. Multiloculated 2.6 x 2.3 x 1 cm laminectomy bed fluid collection with moderate mass effect upon the inferior thecal sac. This is nonspecific in the early postoperative setting and could reflect a seroma or pseudomeningocele. A resolving hematoma could appear similar. 2. Additional intracanalicular fluid collection within the right posterolateral aspect of the canal extending from the L1-L3 levels which measures approximately 5.3 x 1.4 x 0.6 cm. This collection appears to be subdural in location although an epidural fluid collection could appear similar. This is nonspecific and could reflect a pseudomeningocele/subdural hygroma seen in the setting of a dural injury. An epidural hematoma or less likely abscess could appear similar. Close clinical monitoring is recommended. If progressive symptoms, a short-term follow-up MRI is recommended. 3. Moderate distention of the bladder. Electronically signed by: Harjinder Branch M.D. 07/25/2017 10:55 PM Dictated Date/Time: 07/25/2017 10:34 PM
[2017-07-26] VITALS (11 sets, daily range): BP systolic 93–146; BP diastolic 53–80; PULSE 59–92; TEMP 36.5–37.1; O2SAT 92–98; Ht 177.8 cm; Wt 109.0 kg
[2017-07-26] MEDS ORDERED: NURSING VERBAL MED ORDER ONE (00:15)
[2017-07-26] MEDS ORDERED: IV FLUIDS COMPLETED PRN (00:30)
[2017-07-26] MEDS ORDERED: FAMOTIDINE 20 MG TAB PO ONE (00:33)
[2017-07-26] MEDS ORDERED: PANTOprazole SOD 40 MG TAB PO ONE (00:33)
[2017-07-26] MEDS ORDERED: OXYCODONE/ACETAMINOPHEN 5-325 TAB PO PRN (00:45)
--- NOTE | 2017-07-26 00:46 | Medical Consult ---
Consultation Date of Consultation: Jul 26, 2017. Attending Physician: Reason for Consultation: Nausea, Vomiting, Back Pain History of Present Illness The patient is a 42 year old female who presents with back pain with nausea. The patients states that 4 days ago, she had an L5-S1 fusion done by Dr. Whitman with [facility]. She was discharged home with pain control with oxycodone and has follow-up with Dr. Whitman in 2 weeks. States that the day she went home and did well for the first day but then states she developed a fever of 102 and Tylenol did help bring her fever down to 99. She also had nausea and was unable to keep PO food and meds down. Zofran was minimally helpful. She then developed shaking and vomiting and has had difficulty eating and drinking since. She also notes constipation and not having had a bowel movement in the past 4 days. She denies dysuria or urinary frequency. She has no cough, mucus, wheezing or chest pain. She states that her back has been leaking bloody-tinged fluid, but no pus. The area has remained extremely painful since leaving the hospital and is not getting better.. Past Medical/Surgical History Medical Problems: (1) Low back pain Status: Acute (2) Peptic Ulcer Nos Status: Chronic (3) Schatzki's ring Status: Chronic Family History Diabetes mellitus FH: gallbladder disease Kidney disease Kidney stones Social History Smoking Status: Never Smoker Smokeless Tobacco Use: No Alcohol Use: none Drug Use: none Marital Status: in relationship Housing Status: lives with family Occupation Status: disabled Allergies Coded Allergies: NO KNOWN DRUG ALLERGIES (Verified Allergy, Unknown, NONE, 07/25/17) Carrot (Verified Adverse Reaction, Unknown, GI SYMPTOMS, 07/25/17) Chicken Allergy (Verified Adverse Reaction, Unknown, GI UPSET, 07/25/17) [place] Oil (Verified Adverse Reaction, Unknown, GI SYMPTOMS, 07/25/17) Grape (Verified Adverse Reaction, Unknown, GI SYMPTOMS, 07/25/17) Potato (Verified Adverse Reaction, Unknown, GI SYMPTOMS, 07/25/17) Current Inpatient Medications Current Inpatient Medications Medications (Trade) Dose Ordered Sig/Naveen Route Start Time Stop Time Status Last Admin Dose Admin Ioversol (Optiray 320) 100 ml UD PRN IV 07/25/17 18:00 07/29/17 17:59 Miscellaneous Information (Nursing Verbal Med Order) 1 ea ONE ONCE N/A 07/26/17 00:15 07/26/17 00:16 UNV Miscellaneous (Iv Fluids Completed) 1 ea PRN PRN N/A 07/26/17 00:30 07/26/18 00:29 UNV Review of Systems Constitutional: + fever Eyes: No worsening of vision, No eye pain, No redness, No discharge ENT: No nasal symptoms, No sore throat, No tinnitus Respiratory: No cough, No sputum, No shortness of breath Cardiovascular: No chest pain, No claudication, No palpitations Abdomen: No pain, No nausea, No vomiting, No diarrhea, No constipation Genitourinary - Female: No dysuria, No urinary frequency Neurologic: No weakness, No numbness/tingling, No vertigo Psychiatric: No depression symptoms, No anxiety, No insomnia Endocrine: No fatigue, No excessive urination Hematologic / Lymphatic: No abnormal bleeding/bruising, No swollen lymph nodes , No night sweats Integumentary: No rash, No new/changing skin lesions, No color change Physical Exam Date Time Temp Pulse Resp B/P (MAP) Pulse Ox O2 Delivery O2 Flow Rate FiO2 07/26/17 00:23 07/26/17 00:21 37.0 75 18 113/66 99 Room Air 07/25/17 23:31 76 18 122/58 92 Room Air 07/25/17 22:24 83 18 116/73 94 Room Air 07/25/17 20:23 78 18 108/65 98 Room Air 07/25/17 19:31 78 18 124/71 98 Room Air 07/25/17 18:24 83 18 107/54 94 Room Air 07/25/17 17:59 88 18 113/66 95 Room Air 07/25/17 17:13 Room Air 07/25/17 15:59 37.3 96 20 130/84 100 Room Air General Appearance: WD/WN, no apparent distress, + obese Head: normocephalic, atraumatic Eyes: normal inspection, EOMI ENT: hearing grossly normal, pharynx normal Neck: supple, no adenopathy, no JVD Respiratory/Chest: lungs clear, no respiratory distress Cardiovascular: regular rate, rhythm, no gallop, no murmur Abdomen/GI: normal bowel sounds, non tender, soft Back: no CVA tenderness, + pertinent finding (midline incision in lower back. No erythema, no purulence, no swelling noted) Extremities/Musculoskelatal: no pedal edema Neurologic/Psych: alert, normal mood/affect, oriented x 3 Skin: normal color, warm/dry, no rash Lymphatic: no adenopathy Laboratory Results Last 24 Hours Test 07/25/17 17:30 07/25/17 18:24 White Blood Count 10.41 K/uL Red Blood Count 4.08 M/uL Hemoglobin 11.2 g/dL Hematocrit 36.1 % Mean Corpuscular Volume 88.5 fL Mean Corpuscular Hemoglobin 27.5 pg Mean Corpuscular Hemoglobin Concent 31.0 g/dl Platelet Count 263 K/uL Mean Platelet Volume 9.0 fL Neutrophils (%) (Auto) 64.7 % Lymphocytes (%) (Auto) 24.5 % Monocytes (%) (Auto) 9.4 % Eosinophils (%) (Auto) 0.9 % Basophils (%) (Auto) 0.1 % Neutrophils # (Auto) 6.74 K/uL Lymphocytes # (Auto) 2.55 K/uL Monocytes # (Auto) 0.98 K/uL Eosinophils # (Auto) 0.09 K/uL Basophils # (Auto) 0.01 K/uL RDW Standard Deviation 39.0 fL RDW Coefficient of Variation 12.2 % Immature Granulocyte % (Auto) 0.4 % Immature Granulocyte # (Auto) 0.04 K/uL Erythrocyte Sedimentation Rate 23 mm/hr Prothrombin Time 10.5 SECONDS Prothromb Time International Ratio 1.0 Activated Partial Thromboplast Time 25.0 SECONDS Partial Thromboplastin Ratio 1.0 Sodium Level 138 mmol/L Potassium Level 3.1 mmol/L Chloride Level 100 mmol/L Carbon Dioxide Level 29 mmol/L Anion Gap 9.0 mmol/L Blood Urea Nitrogen 5 mg/dl Creatinine 0.76 mg/dl Est Creatinine Clear Calc Drug Dose 127.6 ml/min Estimated GFR () 111.4 Estimated GFR (Non- 96.1 BUN/Creatinine Ratio 6.2 Random Glucose 89 mg/dl Calcium Level 8.5 mg/dl Total Bilirubin 0.9 mg/dl Aspartate Amino Transf (AST/SGOT) 35 U/L Alanine Aminotransferase (ALT/SGPT) 55 U/L Alkaline Phosphatase 86 U/L C-Reactive Protein 7.25 mg/dl Total Protein 7.2 gm/dl Albumin 3.5 gm/dl Globulin 3.7 gm/dl Albumin/Globulin Ratio 0.9 Bedside Lactic Acid Venous 0.79 mmol/L MRI OF THE LUMBAR SPINE WITHOUT CONTRAST CLINICAL HISTORY: Low back pain radiating into right lower extremity. Fever. Recent lumbar spine surgery. COMPARISON STUDY: Lumbar spine MRI March 22, 2017 and lumbar spine fluoroscopic images of July 21, 2017. TECHNIQUE: Utilizing a 1.5 [place] magnet and dedicated coil, multiplanar, multiecho imaging of the lumbar spine was performed without IV contrast. FINDINGS: For purposes of numbering on this exam, the L5-S1 disc space is assigned to axial image 27 of 30. There are post surgical findings consistent with an L5-S1 discectomy with interbody spacer placement. There are bilateral pedicle screws at the L5 and S1 levels. Note is made of a multiloculated laminectomy bed fluid collection at the left L5-S1 level that measures approximately 2.3 x 2.6 x 1 cm. Smaller adjacent components are noted. This has moderate mass effect upon the inferior thecal sac. Note is made of an additional intracanalicular T2 hyperintense, T1 hypointense fluid collection within the right posterolateral aspect of the canal extending from the L1-L3 levels. This collection measures approximately 5.3 x 1.4 x 0.6 cm. This has mass effect upon the adjacent nerve roots. This could be either subdural or epidural in location. No additional fluid collections are present. Vertebral body heights are maintained. Conus terminates at the T12-L1 level. Note is made of moderate distention of the bladder. IMPRESSION: 1. Status post L5-S1 discectomy and bilateral pedicle screw fusion with laminectomy. Multiloculated 2.6 x 2.3 x 1 cm laminectomy bed fluid collection with moderate mass effect upon the inferior thecal sac. This is nonspecific in the early postoperative setting and could reflect a seroma or pseudomeningocele. A resolving hematoma could appear similar. 2. Additional intracanalicular fluid collection within the right posterolateral aspect of the canal extending from the L1-L3 levels which measures approximately 5.3 x 1.4 x 0.6 cm. This collection appears to be subdural in location although an epidural fluid collection could appear similar. This is nonspecific and could reflect a pseudomeningocele/subdural hygroma seen in the setting of a dural injury. An epidural hematoma or less likely abscess could appear similar. Close clinical monitoring is recommended. If progressive symptoms, a short-term follow-up MRI is recommended. 3. Moderate distention of the bladder. Electronically signed by: Harjinder Branch M.D. 07/25/2017 10:55 PM Dictated Date/Time: 07/25/2017 10:34 PM The status of this report is Signed. Draft = Not yet reviewed or approved by Radiologist. Signed = Reviewed and approved by Radiologist. Assessment & Plan 42 year old female day 4 s/p L5-S1 fusion. The patient presents with fevers, surgical site pain and inability to keep PO. Clinical examination is unremarkable at this point for obvious infection. She reports subjective fevers but looks relatively well in the ED without acute concerns of evolving sepsis. We do recommend evaluation by orthopedics as follow-up to MRI imaging done in the ED to determine if surgical site is the source of her acute complaints. Our recommendations are as follows: S/P Lumbar Disc Fusion at L5-S1 - Does note appear acutely infected; no fevers in ED; no leukocytosis - I recommend observing for fevers and only then initiating IV antibiotics to cover her for surgical site infection - Will add Baclofen at this time for back spasm - Pain management per primary; will add Percocet until seen by them History of Gastritis - Patient takes Protonix 40 mg PO daily at home - Will add Famotidine in the setting of GI symptoms Hypokalemia - Likely 2/2 vomiting - Zofran 4 mg PRN; Phenergan if no relief - Oral K supplementation and daily K monitoring We will continue to follow the patient daily Attending Addendum: I have physically seen and examined this patient, have directed the resident's medical activities, and agree with the H&P as noted above with the following exceptions as noted. The patient is awake, alert and oriented 3, well-developed and well-nourished , normocephalic and atraumatic, lying in bed and in mild to moderate distress. HEENT--PERRL, EOMI, mucous membranes and oropharynx dry. Neck--supple, no JVD or bruits, thyroid normal, trachea midline, no adenopathy. Heart--normal S1 and S2, no extra beats, no murmurs, rubs or gallops. Lungs--clear bilaterally with good air movement, no respiratory distress, no accessory muscle use. Abdomen--normal bowel sounds and soft, nontender and nondistended, no hernias or masses, no organomegaly , obese. Extremities--no cyanosis, clubbing or edema. There are good distal pulses b/l. Dermatologic--midline incision lower back without erythema, drainage or swelling. Neurologic--cranial nerves II through XII grossly intact, motor and sensory examination normal. Rheumatologic--expected reproducible pain over lumbar spine area Psychiatric--normal affect. Assessment and Plan: Status post L5-S1 discectomy and bilateral pedicle screw fusion with laminectomy -- ED physician has consulted with lumbar spine specialty who felt that the fluid collection present was not uncommon post surgically. The patient should be monitored for an increasing white blood cell count, worsening pain or the development of a fever. For now would not advise any antibiotics usage. Baclofen 20 mg by mouth 3 times a day when necessary muscle spasm. Percocet for when necessary pain control overnight. Avoid all NSAIDs. Peptic ulcer disease history/Schatzki ring/recent gastritis/symptoms of nausea and vomiting-- Continue pantoprazole 40 mg by mouth twice a day. At famotidine 20 mg IV every 12 hour. Consideration should also be that of gallbladder disease, however, normal LFTs and no leukocytosis. Patient was being considered for an EGD during a previous admission, which may need to be revisited. Hypokalemia/dehydration/secondary to vomiting-- NSS + KCl 20 mEq at 100 mils per hour. Zofran 4 mg IV every 6 hours when necessary
[2017-07-26] MEDS ORDERED: NALOXONE HCL 0.4 MG/1 ML VIAL/CARP IV PRN (02:30)
[2017-07-26] MEDS: HYDROmorphone HCL 0.5MG/ML 50 ML CASSETTE IV PRN ×2 (04:05→23:18)
[2017-07-26] MEDS: SODIUM CHLORIDE 0.9% 1000ML 1,000 ML IV SCH (04:06)
[2017-07-26 07:12] LABS: BASO % 0.2 %; BASO ABS # 0.02 K/uL (0-0.2); COMPLETE YES; HEMATOCRIT 32.9 % (37-47); IG% 0.2 %; LYMPH % 29.7 %; LYMPH ABS # 2.39 K/uL (1.2-3.4); MEAN CELL VOLUME 87.5 fL (80-100); MEAN CORPUSCULAR HEMOGLOBIN 29.5 pg (25-34); MEAN CORPUSCULAR HGB CONC 33.7 g/dl (32-36); MEAN PLATELET VOLUME 8.8 fL (7.4-10.4); MONO % 11.1 %; NEUT % 56.8 %; PLATELET COUNT 228 K/uL (130-400); RED BLOOD COUNT 3.76 M/uL (4.2-5.4); WHITE BLOOD COUNT 8.04 K/uL (4.8-10.8)
[2017-07-26] MEDS ORDERED: ACETAMINOPHEN 325 MG TAB PO PRN (07:30)
[2017-07-26] MEDS ORDERED: KETOROLAC TROMETHAMINE 30 MG/ML VIAL IV PRN (07:30)
[2017-07-26 07:39] LABS: BUN/CREATININE RATIO 7.2 (10-20); CALCIUM 8.5 mg/dl (8.5-10.1); CREATININE 0.68 mg/dl (0.60-1.20); POTASSIUM 3.2 mmol/L (3.5-5.1)
--- NOTE | 2017-07-26 07:46 | History and Physical ---
History & Physical Date & Time of Service: Jul 26, 2017 at 07:44 Chief Complaint: Intractable Back Pain Post Op Primary Care Physician: Nicolas Britt M.D. History of Present Illness Source: patient Stanislaw is a 42-year-old female well known to us. On 07/21/2017 she underwent lumbar decompression with instrumented fusion of L5-S1. No issues postoperative during her hospital stay. She presented to the emergency room last evening with a complaint of increased back pain, right leg pain, nausea, and vomiting and abdominal pain. She also notes she had a temperature of 102 yesterday. This did improve with Tylenol at home. She's been taking oxycodone at home for pain control. She is also taking Zofran for nausea. All positions reproduce her pain specifically when changing positions such as rolling over or from a seated to a standing position. She also has limitations in walking secondary to pain. Denies bowel or bladder changes. Past Medical/Surgical History Medical Problems: (1) Acute low back pain Status: Resolved (2) Anxiety Status: Resolved (3) Dental infection Status: Resolved (4) Esophageal obstruction due to food impaction Status: Resolved (5) Esophageal obstruction due to food impaction Status: Resolved (6) Food impaction of esophagus Status: Resolved (7) Ovarian Cyst Nec/Nos Status: Resolved (8) Peptic Ulcer Nos Status: Chronic (9) Pneumonia, Organism Nos Status: Resolved (10) Pyelonephritis Nos Status: Resolved (11) Schatzki's ring Status: Chronic (12) Sinus infection Status: Resolved (13) Urin Tract Infection Nos Status: Resolved Family History Diabetes mellitus FH: gallbladder disease Kidney disease Kidney stones Social History Smoking Status: Never Smoker Smokeless Tobacco Use: No Alcohol Use: none Drug Use: none Marital Status: in relationship Housing status: lives with family Occupational Status: disabled Immunizations History of Influenza Vaccine: Unknown History of Tetanus Vaccine?: Unknown Multi-Drug Resistant Organisms History of MDRO: No Allergies Coded Allergies: NO KNOWN DRUG ALLERGIES (Verified Allergy, Unknown, NONE, 07/25/17) Carrot (Verified Adverse Reaction, Unknown, GI SYMPTOMS, 07/25/17) Chicken Allergy (Verified Adverse Reaction, Unknown, GI UPSET, 07/25/17) [place] Oil (Verified Adverse Reaction, Unknown, GI SYMPTOMS, 07/25/17) Grape (Verified Adverse Reaction, Unknown, GI SYMPTOMS, 07/25/17) Potato (Verified Adverse Reaction, Unknown, GI SYMPTOMS, 07/25/17) Home Medications Scheduled Omeprazole (Prilosec), 40 MG PO BID Scheduled PRN Ondansetron Hcl (Zofran), 8 MG PO for Nausea Oxycodone HCl (Oxycodone HCl), 5-10 MG PO Q4H PRN for Moderate - severe pain Review of Systems Constitutional: + fever Abdomen: + pain, + nausea, + vomiting Physical Exam Vital Signs Date Time Temp Pulse Resp B/P (MAP) Pulse Ox O2 Delivery O2 Flow Rate FiO2 07/26/17 07:15 36.7 62 16 96/60 (72) 94 Room Air 07/26/17 06:15 36.7 74 16 101/61 (74) 96 Room Air 07/26/17 05:15 36.6 59 14 97/57 (70) 97 Room Air 07/26/17 04:19 36.8 66 14 93/53 (66) 97 Room Air 07/26/17 01:45 37.1 79 16 100/64 (76) 98 Room Air 07/26/17 01:45 Room Air 07/26/17 01:24 81 18 112/74 97 07/26/17 00:51 Room Air 07/26/17 00:23 07/26/17 00:21 37.0 75 18 113/66 99 Room Air 07/25/17 23:31 76 18 122/58 92 Room Air 07/25/17 22:24 83 18 116/73 94 Room Air 07/25/17 20:23 78 18 108/65 98 Room Air 07/25/17 19:31 78 18 124/71 98 Room Air 07/25/17 18:24 83 18 107/54 94 Room Air 07/25/17 17:59 88 18 113/66 95 Room Air 07/25/17 17:13 Room Air 07/25/17 15:59 37.3 96 20 130/84 100 Room Air General Appearance: + mild distress Head: normocephalic Eyes: normal inspection ENT: hearing grossly normal Neck: supple Respiratory/Chest: no respiratory distress Cardiovascular: regular rate, rhythm Abdomen/GI: soft Extremities/Musculoskelatal: normal inspection, no calf tenderness Neurologic/Psych: no motor/sensory deficits Skin: normal color, warm/dry Lymphatic: no adenopathy Lumbar incision is clean dry and intact. No drainage. No erythema. No significant edema. Strength is intact bilateral lower extremities. Calves are soft and nontender bilateral lower extremities. Diagnostics Laboratory Results Results Past 24 Hours Test 07/25/17 17:30 07/25/17 18:24 07/26/17 06:49 Range/Units White Blood Count 10.41 8.04 4.8-10.8 K/uL Red Blood Count 4.08 3.76 4.2-5.4 M/uL Hemoglobin 11.2 11.1 12.0-16.0 g/dL Hematocrit 36.1 32.9 37-47 % Mean Corpuscular Volume 88.5 87.5 80-100 fL Mean Corpuscular Hemoglobin 27.5 29.5 25-34 pg Mean Corpuscular Hemoglobin Concent 31.0 33.7 32-36 g/dl Platelet Count 263 228 130-400 K/uL Mean Platelet Volume 9.0 8.8 7.4-10.4 fL Neutrophils (%) (Auto) 64.7 56.8 % Lymphocytes (%) (Auto) 24.5 29.7 % Monocytes (%) (Auto) 9.4 11.1 % Eosinophils (%) (Auto) 0.9 2.0 % Basophils (%) (Auto) 0.1 0.2 % Neutrophils # (Auto) 6.74 4.56 1.4-6.5 K/uL Lymphocytes # (Auto) 2.55 2.39 1.2-3.4 K/uL Monocytes # (Auto) 0.98 0.89 0.11-0.59 K/uL Eosinophils # (Auto) 0.09 0.16 0-0.5 K/uL Basophils # (Auto) 0.01 0.02 0-0.2 K/uL RDW Standard Deviation 39.0 39.3 36.4-46.3 fL RDW Coefficient of Variation 12.2 12.2 11.5-14.5 % Immature Granulocyte % (Auto) 0.4 0.2 % Immature Granulocyte # (Auto) 0.04 0.02 0.00-0.02 K/uL Erythrocyte Sedimentation Rate 23 0-21 mm/hr Prothrombin Time 10.5 9.0-12.0 SECONDS Prothromb Time International Ratio 1.0 0.9-1.1 Activated Partial Thromboplast Time 25.0 21.0-31.0 SECONDS Partial Thromboplastin Ratio 1.0 Sodium Level 138 139 136-145 mmol/L Potassium Level 3.1 3.2 3.5-5.1 mmol/L Chloride Level 100 102 98-107 mmol/L Carbon Dioxide Level 29 26 21-32 mmol/L Anion Gap 9.0 11.0 3-11 mmol/L Blood Urea Nitrogen 5 5 7-18 mg/dl Creatinine 0.76 0.68 0.60-1.20 mg/dl Est Creatinine Clear Calc Drug Dose 127.6 142.6 ml/min Estimated GFR () 111.4 124.2 Estimated GFR (Non- 96.1 107.1 BUN/Creatinine Ratio 6.2 7.2 10-20 Random Glucose 89 96 70-99 mg/dl Calcium Level 8.5 8.5 8.5-10.1 mg/dl Total Bilirubin 0.9 0.2-1 mg/dl Aspartate Amino Transf (AST/SGOT) 35 15-37 U/L Alanine Aminotransferase (ALT/SGPT) 55 12-78 U/L Alkaline Phosphatase 86 45-117 U/L C-Reactive Protein 7.25 0-0.29 mg/dl Total Protein 7.2 6.4-8.2 gm/dl Albumin 3.5 3.4-5.0 gm/dl Globulin 3.7 2.5-4.0 gm/dl Albumin/Globulin Ratio 0.9 0.9-2 Bedside Lactic Acid Venous 0.79 0.90-1.70 mmol/L Microbiology Results 07/25/17 Blood Culture, Received Pending 07/25/17 Blood Culture, Received Pending Diagnostic Radiology Patient Name: TUSHAR BELTRAN Unit Number: [id number] Dictated: 07/25/172233 Transcribed: 07/25/172233 SHERLY Printed Date/Time: [~ rep prt dt]/[~ rep prt tm] [~ rep ct labl] - [~ rep ct ivnm] [facility] [place] [address] Dictated: 07/25/172233 Transcribed: 07/25/172233 SHERLY Printed Date/Time: [~ rep prt dt]/[~ rep prt tm] [~ rep ct labl] - [~ rep ct ivnm] Patient: TUSHAR BELTRAN Address1: [address] [facility] Rec: [id number] Address2: [facility] [address] Ac[address] ID: [id number] [facility] Zip: [facility] [address] Date: 1975 Sex: F Room/Bed: Ref Phy: Nicolas Britt M.D. SC: MIGUEL Att Phy: Report #: [id number] Meghann Phy: Nicolas Britt M.D. Test: LSWOC Admit Phy: Flying Squad Worker: ELIAZAR Interpreting Phy: Harjinder Branch MD Diagnosis: PAIN, NAUSEA, FEVER Ordering Phy: Gianni Kiran MD Service Date: 07/25/17 Admit Date: 07/25/17 MNE: [id number] CONF: DICTATED BY: Harjinder Branch MD]] CC: Gianni Kiran MD Hester, Christopher E., M.D. Endcc: [~ rep ct add3]] MRI OF THE LUMBAR SPINE WITHOUT CONTRAST CLINICAL HISTORY: Low back pain radiating into right lower extremity. Fever. Recent lumbar spine surgery. COMPARISON STUDY: Lumbar spine MRI March 22, 2017 and lumbar spine fluoroscopic images of July 21, 2017. TECHNIQUE: Utilizing a 1.5 [place] magnet and dedicated coil, multiplanar, multiecho imaging of the lumbar spine was performed without IV contrast. FINDINGS: For purposes of numbering on this exam, the L5-S1 disc space is assigned to axial image 27 of 30. There are post surgical findings consistent with an L5-S1 discectomy with interbody spacer placement. There are bilateral pedicle screws at the L5 and S1 levels. Note is made of a multiloculated laminectomy bed fluid collection at the left L5-S1 level that measures approximately 2.3 x 2.6 x 1 cm. Smaller adjacent components are noted. This has moderate mass effect upon the inferior thecal sac. Note is made of an additional intracanalicular T2 hyperintense, T1 hypointense fluid collection within the right posterolateral aspect of the canal extending from the L1-L3 levels. This collection measures approximately 5.3 x 1.4 x 0.6 cm. This has mass effect upon the adjacent nerve roots. This could be either subdural or epidural in location. No additional fluid collections are present. Vertebral body heights are maintained. Conus terminates at the T12-L1 level. Note is made of moderate distention of the bladder. IMPRESSION: 1. Status post L5-S1 discectomy and bilateral pedicle screw fusion with laminectomy. Multiloculated 2.6 x 2.3 x 1 cm laminectomy bed fluid collection with moderate mass effect upon the inferior thecal sac. This is nonspecific in the early postoperative setting and could reflect a seroma or pseudomeningocele. A resolving hematoma could appear similar. 2. Additional intracanalicular fluid collection within the right posterolateral aspect of the canal extending from the L1-L3 levels which measures approximately 5.3 x 1.4 x 0.6 cm. This collection appears to be subdural in location although an epidural fluid collection could appear similar. This is nonspecific and could reflect a pseudomeningocele/subdural hygroma seen in the setting of a dural injury. An epidural hematoma or less likely abscess could appear similar. Close clinical monitoring is recommended. If progressive symptoms, a short-term follow-up MRI is recommended. 3. Moderate distention of the bladder. Electronically signed by: Harjinder Branch M.D. 07/25/2017 10:55 PM Dictated Date/Time: 07/25/2017 10:34 PM The status of this report is Signed. Draft = Not yet reviewed or approved by Radiologist. Signed = Reviewed and approved by Radiologist. <AttendingPhy></AttendingPhy> <FamilyPhy>Nicolas Britt M.D.</FamilyPhy > <PrimaryPhy>Nicolas Britt M.D.</PrimaryPhy> <UnitNumber>[id number]</ UnitNumber> <VisitNumber>[id number]</VisitNumber> <PatientName>TUSHAR BELTRAN</PatientName> <DateOfBirth>1975</DateOfBirth> <Location>[facility]</ Location> <ServiceDate>07/25/17</ServiceDate> <MNE>ESINDI</MNE> <OrderingPhy> Gianni Kiran MD</OrderingPhy> <OrderingPhyMNE>f rep ord dr enriquez</ OrderingPhyMNE> <DictatingPhyMNE>f rep dict dr enriquez</DictatingPhyMNE> <CCListMNE> f rep ct mne</CCListMNE> <AdmittingPhyMNE>f pt admit dr enriquez</AdmittingPhyMNE> < AttendingPhyMNE>f pt attend dr enriquez</AttendingPhyMNE> <ConsultingPhyMNE>f pt consult dr enriquez</ConsultingPhyMNE> <FamilyPhyMNE>f pt fam dr enriquez</FamilyPhyMNE> <OtherPhyMNE>f pt other dr enriquez</OtherPhyMNE> < PrimaryPhyMNE>f pt prim care dr enriquez</PrimaryPhyMNE> <ReferringPhyMNE>f pt referring dr enriquez</ReferringPhyMNE> Impression Assessment and Plan Assessment: Uncontrolled lower back pain with nausea and vomiting postoperative lumbar fusion Plan: Patient has been admitted to Dr. Whitman service for pain control. CIRCUS ARTIST is been ordered. Also started Decadron as well as Toradol as needed. Patient is bedrest with bathroom activities. Lab values are within normal limits for 1 week postop. No acute surgical indications. No obvious sign of infection. If pain improves within the next 24 hours we'll consider discharge home. Advanced Directives Existing Living Will: No Existing Power of Cutting Table Operator: No VTE Prophylaxis VTE Risk Assessment Done? Y/N: No
[2017-07-26] MEDS ORDERED: SOD PHOSPHATE/SOD BIPHOSPHATE ENEMA 132 ML BTL PR PRN (08:00)
[2017-07-26] MEDS ORDERED: MAGNESIUM CITRATE 296 ML/BTL PO PRN (08:00)
--- NOTE | 2017-07-26 08:03 | Discharge Instructions ---
Discharge Instructions Date of Service Jul 26, 2017. Admission Reason for Admission: Intractable Back Pain Post Op Discharge Discharge Diagnosis / Problem: back pain Discharge Goals Goal(s): Improve function Activity Recommendations Activity Limitations: per Instructions/Follow-up section . Instructions / Follow-Up Instructions / Follow-Up ACTIVITY RECOMMENDATIONS: SELF CARE INSTRUCTIONS AFTER THORACIC/LUMBAR FUSIONS 1. You may walk to your tolerance. It is good exercise for your legs and back. Expect some back and intermittent leg aches and pains. 2. You may perform "counter-top" level activities (make a sandwich, janki with a project, etc.). 3. No bending or lifting of more than 10 pounds or back twisting of any nature (roll like a log when turning in bed). 4. You may ride in a car for 20-30 minutes at a time. No driving until after your first visit with your doctor. 5. Frequent changes of position and restricting sitting to 30 minutes at a time will help limit the amount of back spasms and stiffness you may experience. 6. You may discontinue the use of ambulatory aids (cane, crutches, etc.) once your strength and confidence allow. 7. You may director of investigations the shower and let water strike your incision when you arrive home at least once daily. Do not take a tub bath, sit in a hot tub or go into a swimming pool until after your first recheck in the office. SPECIAL CARE INSTRUCTIONS: VERY IMPORTANT TO READ AND REVIEW A. Your surgical incision has been closed with a cosmetic suture under the skin that will dissolve in about 6 weeks. In 14 days, you can use a pair of clean scissors and cut the suture that is left outside of the skin at the ends of your incision. 1. The small skin tapes can be removed 7 days after surgery if they have not fallen off by that point. 2. You may keep the wound open to air as much as possible to promote healing after post-op day number 5 unless told otherwise by your doctor. 3. If you think the wound looks like it is becoming infected (redness or worsening drainage) and/or you are experiencing fever, chill or worsening back pain and muscle spasms, contact the office so that we may evaluate you as soon as possible. B. Complications are uncommon, but please contact us if you have any signs or symptoms of: 1. wound infection (fever higher than 102.5 degrees F, redness, separation of wound, drainage, or increasing pain from the incision) 2. blood clots in legs (pain, swelling, redness and warmth in legs) 3. urinary tract infection (fever higher than 102.5 degrees F, burning upon urination or increased frequency of urination) 4. nerve problems (inability to walk on your toes or heels, numbness, loss of bowel or bladder control) 5. any other symptoms that concern you C. Please call the office at if you have any concerns or questions about your operation or recovery. D. No smoking! Smoking drastically decreases the chance of a solid fusion. E. Do not take any anti-inflammatory medications (Indocin, Advil, Motrin, Aspirin, Naprosyn, etc.) as these may inhibit the chance of a solid fusion. Tylenol is okay to take for pain. MANAGING PAIN AFTER SPINAL SURGERY 1. Narcotic medication is intended for short-term use and will be provided for surgical pain. Surgical pain usually lasts for a period of 4-6 weeks. Narcotic medication includes Percocet, Vicodin, Darvocet, Tylenol #3 or Lortab. 2. Longer-term pain is more appropriately treated with non-narcotic medication such as Tylenol ES. 3. Muscle spasm is not appropriately treated with narcotics. Muscle relaxers such as Soma, Flexeril or Skelaxin can be used along with Tylenol ES. 4. Remember that we all live with some "aches and pains". This is not unusual or uncommon after an injury or as we get older. a. Back pain is expected and may include muscle spasms for 4 to 6 weeks after surgery. The pain should gradually improve. If the pain worsens for no apparent reason, please contact the office. b. Intermittent leg pain may also be experienced and should not be concerned about unless it worsens for no apparent reason. If so, please contact the office. 5. We will provide appropriate medication within the normal guidelines of their prescribed use. We will also be very cautious and aware of potential abuse and extended duration of patients' medication needs. a. Pain medications are for your comfort and to assist with sleep and rest so that the tissue can heal. They are not provided in order to return to normal activity and should not be used through the day. To do so or worsening pain at night can result from ongoing tissue damage and development of tolerance to the prescribed medicine. 6. Please allow 2-3 days to process refills. Prescriptions will not be mailed but must be picked up at the office. FOLLOW UP VISIT: Keep your scheduled follow-up appointment. Any questions, please call the office at . Current Hospital Diet Patient's current hospital diet: Regular Diet Discharge Diet Recommended Diet: Regular Diet Pending Studies Studies pending at discharge: no Medical Emergencies . Who to Call and When: Medical Emergencies: If at any time you feel your situation is an emergency, please call 911 immediately. . Non-Emergent Contact Non-Emergency issues call your: Primary Care Provider . "Provider Documentation" section prepared by Mike Whitman. . VTE Core Measure Inpt VTE Proph given/why not?: Katelyn Judd, SCD's
[2017-07-26] MEDS: BACLOFEN 10 MG TAB PO SCH ×3 (08:32→22:27)
[2017-07-26] MEDS: PANTOprazole SOD 40 MG TAB PO SCH ×2 (08:32→22:28)
[2017-07-26] MEDS: POTASSIUM CHLORIDE 20 MEQ TABCR PO SCH ×2 (08:32→22:27)
[2017-07-26] MEDS: FAMOTIDINE 20 MG TAB PO SCH ×2 (08:32→22:27)
[2017-07-26] MEDS: DOCUSATE SODIUM 100 MG CAP PO SCH ×2 (08:34→22:28)
[2017-07-26] MEDS: DEXAMETHASONE INJ 8 MG in SYRINGE 0 ML IV SCH ×2 (08:35→16:23)
--- NOTE | 2017-07-26 09:44 | Progress Note ---
Progress Note Date of Service Jul 26, 2017. Progress Note Patient is more comfortable at this time. She's been able to rest this morning denies any nausea vomiting or headaches. On exam she is good strength testing. Assessment status post lumbar depression fusion replant this time will continue with light activity today initiate physical therapy tomorrow and possibly home.
--- NOTE | 2017-07-26 17:42 | Progress Note ---
Progress Note Date of Service Jul 26, 2017. Progress Note seen in f/u from early AM consult back feeling better, far less pain. taking mag citrate already was taking miralax at home but no BM. nausea/vomiting has passed, no more fever. eating real food for the first time in a while and it's going down Ok. notes tht she feels like she could've done well at home if she had walker and raised toilet seat, relates what sound to be bureaucratic snafus as to how this did not occur. no s/s pneumonia/UTI. notes she never thought back was infected also notes that she's had a hard year and feels like her "life is ruined" denies active SI but does ask if we could facilitate referral for counselling vitals noted nad breathing unalbored tearful at times but consolable back pain - as per ortho, pain under better control constipation - mag citrate hypokalemia - anticipate improvement w better PO intake depression - no active SI. defer to PCP re meds (although would consider SNRI if starting), asked navigator to refer for counselling fever - resolved. ?all just from physiologic stress. no s/s active infection at this time. back appearing clear, no evidence of pneumonia/UTI/cellulitis, blood cultures pending but negative thus far
[2017-07-26] MEDS: ONDANSETRON INJ 2 MG/ML 2 ML VIAL IV PRN (21:29)
[2017-07-27] MEDS: DEXAMETHASONE INJ 8 MG in SYRINGE 0 ML IV SCH (00:28)
[2017-07-27] MEDS: SODIUM CHLORIDE 0.9% 1000ML 1,000 ML IV SCH (02:54)
[2017-07-27 03:22] VITALS: BP 104/63; PULSE 68; TEMP 36.5; O2SAT 98
[2017-07-27] MEDS: HYDROmorphone HCL 0.5MG/ML 50 ML CASSETTE IV PRN ×3 (07:12→23:18)
[2017-07-27 07:20] VITALS: BP 101/61; PULSE 70; TEMP 36.4; O2SAT 97
[2017-07-27] MEDS: DOCUSATE SODIUM 100 MG CAP PO SCH ×2 (08:50→21:11)
[2017-07-27] MEDS: BACLOFEN 10 MG TAB PO SCH ×3 (08:50→21:11)
[2017-07-27] MEDS: PANTOprazole SOD 40 MG TAB PO SCH ×2 (08:50→21:11)
[2017-07-27] MEDS: FAMOTIDINE 20 MG TAB PO SCH ×2 (08:51→21:11)
[2017-07-27] MEDS: POTASSIUM CHLORIDE 20 MEQ TABCR PO SCH ×2 (08:51→21:11)
[2017-07-27] MEDS: ONDANSETRON INJ 2 MG/ML 2 ML VIAL IV PRN ×3 (08:55→23:05)
--- NOTE | 2017-07-27 13:42 | Progress Note ---
Progress Note Date of Service Jul 27, 2017. Progress Note Patient states that her overall pain is improved. She she has been able to get to the bathroom on her own bowels working well. She still notes intermittent headaches and back pain. Leg pain is improved. Assessment status post lumbar depression fusion replant this time will continue with 1 more day of head rest with bathroom privileges. Reassess her tomorrow hopefully discharge home.
[2017-07-27 15:11] VITALS: BP 94/55; PULSE 65; TEMP 36.4; O2SAT 97
--- NOTE | 2017-07-27 19:27 | Progress Note ---
Subjective Date of Service: Jul 27, 2017. Subjective Pt evaluation today including: conversation w/ patient, physical exam, chart review, lab review, review of inpatient medication list feeling better pain better controlled had BM has walker and raised seat now counselling getting set up no new complaints, ortho notes home tomorrow per pt no sob cough cp - nothing feeling like pneumonia no dysuria no new troubles w wound Problem List Medical Problems: (1) Low back pain Status: Acute (2) Peptic Ulcer Nos Status: Chronic (3) Schatzki's ring Status: Chronic Review of Systems all other ROS otherwise negative except for as above Objective Vital Signs Date Time Temp Pulse Resp B/P (MAP) Pulse Ox O2 Delivery O2 Flow Rate FiO2 07/27/17 15:11 36.4 65 18 94/55 (68) 97 Room Air 07/27/17 08:40 Room Air 07/27/17 07:20 36.4 70 20 101/61 (74) 97 Room Air 07/27/17 03:22 36.5 68 16 104/63 (77) 98 Room Air 07/27/17 00:15 Room Air 07/26/17 23:45 36.6 67 16 105/67 (80) 95 Room Air Physical Exam General Appearance: no apparent distress Eyes: EOMI ENT: hearing grossly normal Neck: trachea midline Respiratory/Chest: no respiratory distress, no accessory muscle use Extremities: normal range of motion Neurologic/Psychiatric: 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 defer to PCP re meds (although would consider SNRI if starting), is being set up for counselling fever - resolved. ?all just from physiologic stress. still no s/s active infection at this time. back appearing clear, no evidence of pneumonia/UTI/ cellulitis, blood cultures pending but negative thus far medically appearing stable - will sign off at this time. am available if i can be of further assistance
[2017-07-27 19:29] VITALS: BP 116/72; PULSE 76; TEMP 36.7; O2SAT 98
[2017-07-27 23:10] VITALS: BP_SYST 114; BP_SYST 95; BP_DIAS 61; BP_DIAS 64; PULSE 69; TEMP 36.4; O2SAT 96
[2017-07-28] MEDS: SODIUM CHLORIDE 0.9% 1000ML 1,000 ML IV SCH (02:03)
[2017-07-28 04:05] VITALS: BP 99/61; PULSE 65; TEMP 36.5; O2SAT 99
[2017-07-28] MEDS: HYDROmorphone HCL 0.5MG/ML 50 ML CASSETTE IV PRN (07:12)
[2017-07-28 07:40] VITALS: BP 94/60; PULSE 70; TEMP 36.6; O2SAT 98
[2017-07-28] MEDS: PANTOprazole SOD 40 MG TAB PO SCH ×2 (08:20→21:09)
[2017-07-28] MEDS: BACLOFEN 10 MG TAB PO SCH ×3 (08:20→21:08)
[2017-07-28] MEDS: POTASSIUM CHLORIDE 20 MEQ TABCR PO SCH ×2 (08:20→21:08)
[2017-07-28] MEDS: ONDANSETRON INJ 2 MG/ML 2 ML VIAL IV PRN ×2 (08:20→22:22)
[2017-07-28] MEDS: DOCUSATE SODIUM 100 MG CAP PO SCH ×2 (08:20→21:08)
[2017-07-28] MEDS: FAMOTIDINE 20 MG TAB PO SCH ×2 (08:20→21:09)
--- NOTE | 2017-07-28 09:03 | Progress Note ---
Progress Note Date of Service Jul 28, 2017. Progress Note Patient complains of intermittent headache. Still struggle with some nausea. This morning she was able to sit up without difficulty incision is clean dry intact. There is no drainage. Is no erythema. Is nontender to palpation. She is excellent strength testing bilateral extremity's. Assessment status post lumbar depression fusion. Planned this time will maintain bed rest with bathroom privileges. Discontinue Decadron and initiate Toradol for pain control.
[2017-07-28 11:43] VITALS: BP 112/61; TEMP 34.6; O2SAT 99
[2017-07-28] MEDS ORDERED: NURSING VERBAL MED ORDER ONE (15:00)
[2017-07-28 15:20] VITALS: BP 108/65; PULSE 59; TEMP 36.4; O2SAT 99
[2017-07-28] MEDS: ACETAMINOPHEN IV 1000MG/100ML IV SCH (16:42)
[2017-07-28 19:21] VITALS: BP 102/61; PULSE 63; TEMP 36.9; O2SAT 99
[2017-07-28 23:30] VITALS: BP 121/80; PULSE 62; TEMP 36.7; O2SAT 98
[2017-07-29] MEDS: ACETAMINOPHEN IV 1000MG/100ML IV SCH ×2 (00:19→09:09)
[2017-07-29 07:50] VITALS: BP 123/68; PULSE 67; TEMP 36.5; O2SAT 97
[2017-07-29] MEDS: POTASSIUM CHLORIDE 20 MEQ TABCR PO SCH (09:00)
[2017-07-29] MEDS: DOCUSATE SODIUM 100 MG CAP PO SCH (09:00)
[2017-07-29] MEDS: PANTOprazole SOD 40 MG TAB PO SCH (09:11)
[2017-07-29] MEDS: BACLOFEN 10 MG TAB PO SCH (09:11)
[2017-07-29] MEDS: ONDANSETRON INJ 2 MG/ML 2 ML VIAL IV PRN (09:11)
[2017-07-29] MEDS: FAMOTIDINE 20 MG TAB PO SCH (09:11)
--- NOTE | 2017-07-29 11:47 | Discharge Summary ---
Orthopedic Discharge Summary Admission Date/Reason Jul 28, 2017 at 14:52 Intractable Back Pain Post Op. Discharge Date/Disposition Jul 29, 2017 Home Diagnosis Principal Diagnosis: Back pain Admission Physical Exam As per Admitting History & Physical. Hospital Course Patient was admitted few days ago secondary to marked increase in back and leg symptoms postoperatively. She was placed in a bedrest for 2 days. She tolerated this reasonably well with marked improvement of her symptom complex of the course of time. She's been, independent with ambulation about the room in and out of the bathroom. No issues with bowel bladder control. Subsequently she was discharged home. Discharge orders and instructions found the chart for further review. Discharge Instructions Please refer to the electronic Patient Visit Report (Discharge Instructions) for additional information.
[2017-07-29 13:23] VITALS: BP 123/68; PULSE 67; TEMP 36.5; O2SAT 97
== END 2017-07-29 13:44 | disposition home or self-care (01) | DRG 948 ==
LOC: C.EDB 15:55 → C.MSW 07-26 00:20 → ENRESERV 07-26 01:18 → OBSVTOIN 07-28 14:52
PROVIDERS: ADMIT Orthopaedic Surgery Orthopaedic Surgery of the Spine; ATTEND Orthopaedic Surgery Orthopaedic Surgery of the Spine
DX: G89.18 Other acute postprocedural pain (principal); M54.9 Dorsalgia, unspecified; F32.9 Major depressive disorder, single episode, unspecified; F41.9 Anxiety disorder, unspecified; E87.6 Hypokalemia; Z87.01 Personal history of pneumonia (recurrent); Z87.11 Personal history of peptic ulcer disease; Z83.3 Family history of diabetes mellitus; Z84.1 Family history of disorders of kidney and ureter

== ENCOUNTER → 2017-08-03 | Outpatient (CLI) | payer BC ==
[~2017-08-03] MED LIST changes: -FLUT0.15 PO; -MULT-506 PO; +ONDA8TAB6 PO
[2017-08-03 18:10] LABS: BLOOD UREA NITROGEN 8 mg/dl (7-18); CALCIUM 8.9 mg/dl (8.5-10.1); CARBON DIOXIDE 27 mmol/L (21-32); CHLORIDE 104 mmol/L (98-107); CREATININE 0.89 mg/dl (0.60-1.20); GLUCOSE 92 mg/dl (70-99); SODIUM 139 mmol/L (136-145)
== END | disposition home or self-care (01) ==
LOC: C.LABBFT 14:00
PROVIDERS: ATTEND Physician Assistant Medical
DX: E87.6 Hypokalemia (principal)

== ENCOUNTER → 2017-10-03 | Outpatient (CLI) | payer BC ==
[~2017-10-03] MED LIST changes: +SINCALIDE INJ 2.2 MCG in SODIUM CHLORIDE 0.9% 100ML 100 ML IV ONE
--- NOTE | 2017-10-03 10:43 | DIAGNOSTIC IMAGING REPORT ---
HEPATOBILIARY EF IMAGING CLINICAL HISTORY: 42 years-old Female presenting with R10.11 Abdominal pain, acute, right upper quadrantWITH EJECTION. TECHNIQUE: Dynamic imaging of the gallbladder was initiated 65 minutes after administration of 5.3 mCi of technetium 99m Choletec. Imaging was obtained every 5 minutes over a span of 40 minutes. 2.2 mcg of sincalide was injected 5 minutes prior to the start of imaging. The gallbladder ejection fraction was calculated. COMPARISON: 07/14/2016.. FINDINGS: The hepatobiliary scan shows normal filling of the gallbladder at the start of imaging as well as passage of activity into the small bowel. However, dynamic imaging of the gallbladder demonstrates an ejection fraction measured at 12% (normal greater than 50%). IMPRESSION: 1. Abnormal gallbladder ejection fraction. This could suggest chronic cholecystitis. Electronically signed by: Jc Lal M.D. 10/03/2017 10:41 AM Dictated Date/Time: 10/03/2017 10:39 AM
== END | disposition home or self-care (01) ==
LOC: C.NUCL 08:22
PROVIDERS: ATTEND Internal Medicine
DX: R93.2 Abnormal findings on diagnostic imaging of liver and biliary tract (principal)

== ENCOUNTER → 2017-10-31 | Outpatient (CLI) | payer BC ==
[~2017-10-31] MED LIST changes: +OPTIRAY 320 IV PRN; -SINCALIDE INJ 2.2 MCG in SODIUM CHLORIDE 0.9% 100ML 100 ML IV ONE
--- NOTE | 2017-10-31 13:56 | DIAGNOSTIC IMAGING REPORT ---
CHEST CT WITH CONTRAST CT DOSE: 672.54 mGy.cm HISTORY: Chronic right-sided chest pain. TECHNIQUE: Multiaxial CT images of the chest were performed following the intravenous administration of contrast. A dose lowering technique was utilized adhering to the principles of ALARA. COMPARISON: Chest CTA 07/25/2017. Chest CT 07/15/2011 FINDINGS: The central airways are patent. No pleural effusions. No pneumothorax. There are 2 subcentimeter nodules within the left lower lobe on images 151 and 159. The largest measures 8 x 6 mm. These are stable compared to a 2010 study and are therefore considered to be benign. There are few additional stable subcentimeter peripheral nodules seen within the right lung. No new pulmonary nodules identified. No focal lung consolidations to suggest pneumonia. No fractures within the visualized osseous structures. The visualized liver, spleen, and adrenal glands are unremarkable. No mediastinal or hilar lymphadenopathy. The heart is normal in size. The main pulmonary arteries are patent. Normal caliber thoracic aorta with no evidence for dissection. IMPRESSION: No change compared to the prior studies. No acute process within the chest. Electronically signed by: Jaswant Naranjo M.D. 10/31/2017 1:54 PM Dictated Date/Time: 10/31/2017 1:43 PM
== END | disposition home or self-care (01) ==
LOC: C.CTS 12:54
PROVIDERS: ATTEND Surgery
DX: R10.11 Right upper quadrant pain (principal)

== ENCOUNTER → 2017-12-02 | Outpatient (CLI) | payer BC ==
[~2017-12-02] MED LIST changes: -OPTIRAY 320 IV PRN
== END | disposition home or self-care (01) ==
LOC: C.LABBFT 09:04
PROVIDERS: ATTEND Nurse Practitioner
DX: R63.5 Abnormal weight gain (principal)

== ENCOUNTER → 2017-12-12 | Outpatient (CLI) | payer OTHER, BC ==
[~2017-12-12] MED LIST changes: +GABAPENTIN PO; -RXC5 PO
--- NOTE | 2017-12-12 14:15 | DIAGNOSTIC IMAGING REPORT ---
FLEXION-EXTENSION VIEWS AND LUMBAR SPINE (2 VIEWS) CLINICAL HISTORY: LUMBAR RADICULOPATHY COMPARISON STUDY: 11/02/2013 FINDINGS: There are postsurgical changes of an L5-S1 discectomy and interbody fusion with posterior uncal screw fixation. There is no instability on flexion or extension. No acute fractures are visualized. IMPRESSION: Postsurgical changes the L5-S1 level. No evidence of instability on flexion or extension Electronically signed by: Sacha Figueroa M.D. 12/12/2017 2:14 PM Dictated Date/Time: 12/12/2017 2:13 PM
== END | disposition home or self-care (01) ==
LOC: C.RADBC 13:53
PROVIDERS: ATTEND Physician Assistant
DX: M54.16 Radiculopathy, lumbar region (principal)

== ENCOUNTER → 2017-12-20 | Outpatient (CLI) | payer OTHER, BC ==
[~2017-12-20] MED LIST changes: +GADAVIST IV PRN
--- NOTE | 2017-12-20 14:20 | DIAGNOSTIC IMAGING REPORT ---
LUMBAR SPINE COMBINATION CLINICAL HISTORY: 42 years-old Female with LUMBAR RADICULOPATHY. Acute low back pain with radiation into the left lower extremity COMPARISON: Lumbar spine radiographs 12/12/2017, lumbar spine MR 07/25/2017 TECHNIQUE: Multiplanar, multi sequence MRI of the lumbar spine was performed both with and without the use of 11 mL Gadavist FINDINGS: No acute fracture or subluxation identified. Postoperative changes are again seen compatible with prior discectomy with posterior decompression and interbody carlos and screw fusion at L5-S1. The previously noted 2.3 cm collection posterior to L5 appears to have decreased in size. Micrometallic artifact with ill-defined edema is seen within this distribution. The previously described linear 5.3 cm fluid collection at L1-L2 which appear to be either subdural or epidural in location is also not definitively seen and appears to have resolved in the interval. The thecal sac however does appear to be somewhat shifted in the left portion of the central canal at L5-S1, likely secondary to post surgical ex vacuo changes The uterus is noted to be anteflexed. No acute intra-abdominal or intrapelvic abnormality is identified. The paraspinal structures demonstrate no acute abnormality. The conus medullaris terminates at the T12-L1 level. The cauda equina appear unremarkable. Mild enhancement of the soft tissues posterior to the laminectomy bed at L5 demonstrates enhancement suggesting granulation tissue. The thecal sac at L5 appears to be adherent to this granulation tissue as seen on image 26 series 8. T12-L1: No central canal or foraminal narrowing. L1-L2: Mild facet arthrosis and ligamentum flavum thickening. No central canal or foraminal narrowing. L2-L3: Mild facet arthrosis and ligamentum flavum thickening. No central canal or foraminal narrowing. L3-L4: Mild facet arthrosis and ligamentum flavum thickening without central canal or foraminal narrowing. L4-L5: Mild facet arthrosis and ligament of flavum thickening without central canal or foraminal narrowing. L5-S1: Prior discectomy with posterior decompression and interbody fusion at this interspace. Artifact partially obscures the left foramen. Posterior spondylitic spurring is noted with resultant mild right foraminal narrowing. Central canal appears patent. IMPRESSION: 1. Postoperative changes from prior discectomy with posterior interbody carlos and screw fusion at L5-S1. There is improvement with near complete resolution of the previously described 2.3 cm fluid collection within this region seen on comparison study dated 07/25/2017. 2. Micrometallic artifact with ill-defined soft tissue enhancement within the laminectomy bed at L5-S1 is noted suggesting granulation tissue. The thecal sac has slightly shifted to the left portion of the central canal at this level, likely postsurgical sequela. No additional abnormal enhancement identified. 3. No high-grade central canal or foraminal narrowing identified. 4. The previously noted linear fluid collection at L1-L2 which was either in the subdural or epidural space on comparison study appears to have resolved in the interval. The above report was generated using voice recognition software. It may contain grammatical, syntax or spelling errors. Electronically signed by: Olman Mosquera M.D. 12/20/2017 2:19 PM Dictated Date/Time: 12/20/2017 1:41 PM
== END | disposition home or self-care (01) ==
LOC: C.MRIBC 12:17
PROVIDERS: ATTEND Physician Assistant
DX: M54.16 Radiculopathy, lumbar region (principal); Z98.890 Other specified postprocedural states; Z96.9 Presence of functional implant, unspecified

== ENCOUNTER 2018-03-08 11:22 | Emergency (ER) | payer BC, OTHER ==
[~2018-03-08] VITALS: Ht 177.8 cm; Wt 111.3 kg
[~2018-03-08 11:22] MED LIST changes: +CYM/30 PO; -GADAVIST IV PRN; +ONDA-170 PO; -ONDA8TAB6 PO; -PRLSR20 PO
[2018-03-08 11:27] VITALS: TEMP 36.6
[2018-03-08] MEDS ORDERED: ONDANSETRON INJ 2 MG/ML 2 ML VIAL IV STA (11:59)
[2018-03-08] MEDS ORDERED: HYDROmorphone INJ 1 MG/ML SYR IV STA (11:59)
[2018-03-08] MEDS ORDERED: METHYLPREDNISOLONE 125 MG VIAL IV STA (11:59)
[2018-03-08] MEDS ORDERED: ALBUT/IPRATROP 3MG/0.5MG NEB 3 ML VIAL INH ONE (12:00)
[2018-03-08 12:07] VITALS: O2SAT 98; Ht 177.8 cm; Wt 111.3 kg
--- NOTE | 2018-03-08 12:12 | EMERGENCY ROOM VISIT NOTE ---
History Report prepared by Godfrey: Washington Meng Under the Supervision of: Dr. Gianni Kiran M.D. First contact with patient: 11:52 Chief Complaint: SHORTNESS OF BREATH Stated Complaint: RASH, HARD TO BREATH, CHILL History of Present Illness The patient is a 43 year old female who presents to the Emergency Room with complaints of persistent shortness of breath that began last night. The patient is also complaining of pain in the right side of her abdomen. She knows that her gallbladder needs removed, but she was not able to have the surgery yet as she just had back surgery, and they were too close together. She also complains of her heart feeling like "it is beating out of my chest." The patient continued to add that she has a rash on her bilateral thighs. She has been taking Claritin and Benadryl without relief. Source of History: patient Onset: Last night Position: chest Quality: other (SOB) Timing: other (Persistent) Associated Symptoms: + abdominal pain, + rash Review of Systems See HPI for pertinent positives & negatives. A total of 10 systems reviewed and were otherwise negative. Past Medical & Surgical Medical Problems: (1) Acute low back pain (2) Anxiety (3) Dental infection (4) Esophageal obstruction due to food impaction (5) Esophageal obstruction due to food impaction (6) Food impaction of esophagus (7) Lumbar stenosis with neurogenic claudication (8) Ovarian Cyst Nec/Nos (9) Peptic Ulcer Nos (10) Pneumonia, Organism Nos (11) Pyelonephritis Nos (12) RUQ abdominal pain (13) Schatzki's ring (14) Sinus infection (15) Urin Tract Infection Nos Surgical Problems: (1) History of lumbar laminectomy Family History Diabetes mellitus FH: gallbladder disease Kidney disease Kidney stones Social History Smoking Status: Never Smoker Alcohol Use: occasionally Drug Use: none Marital Status: in relationship Housing Status: lives with family Occupation Status: disabled Current/Historical Medications Scheduled Ciprofloxacin Hcl (Cipro), 1 TAB PO BID Duloxetine HCl (Cymbalta), 60 MG PO DAILY Gabapentin (Neurontin), 300 MG PO TID Prednisone (Prednisone Tab), 0 PO DAILY Ranitidine Hcl (Zantac), 150 MG PO BID Scheduled PRN Diphenhydramine Hcl (Diphenhydramine Hcl), 50 MG PO Q6 PRN for Itching Allergies Coded Allergies: NO KNOWN DRUG ALLERGIES (Verified Allergy, Unknown, NONE, 03/08/18) Carrot (Verified Adverse Reaction, Unknown, GI SYMPTOMS, 03/08/18) Chicken Allergy (Verified Adverse Reaction, Unknown, GI UPSET, 03/08/18) [place] Oil (Verified Adverse Reaction, Unknown, GI SYMPTOMS, 03/08/18) Grape (Verified Adverse Reaction, Unknown, GI SYMPTOMS, 03/08/18) Potato (Verified Adverse Reaction, Unknown, GI SYMPTOMS, 03/08/18) Physical Exam Vital Signs Date Time Temp Pulse Resp B/P (MAP) Pulse Ox O2 Delivery O2 Flow Rate FiO2 03/08/18 14:17 80 18 106/67 100 Room Air 03/08/18 12:54 81 18 120/60 95 Room Air 03/08/18 12:25 88 20 99 Room Air 03/08/18 12:07 98 Room Air 03/08/18 12:07 98 Room Air 03/08/18 12:07 98 Room Air 03/08/18 11:58 95 03/08/18 11:27 36.6 104 26 147/88 99 Room Air Physical Exam GENERAL: Awake, alert, well-appearing, in no acute distress HENT: Normocephalic, atraumatic. Oropharynx unremarkable. EYES: Normal conjunctiva. Sclera non-icteric. NECK: Supple. No nuchal rigidity. FROM. No JVD. RESPIRATORY: Clear to auscultation. She appears to be hyperventilating on exam. CARDIAC: Regular rate, normal rhythm. Extremities warm and well perfused. Pulses equal. ABDOMEN: Soft, non-distended. With tenderness in the RUQ. No rebound or guarding. No masses. RECTAL: Deferred. MUSCULOSKELETAL: Chest examination reveals no tenderness. The back is symmetrical on inspection without obvious abnormality. There is no CVA tenderness to palpation. No joint edema. LOWER EXTREMITIES: Calves are equal size bilaterally and non-tender. No edema. No discoloration. NEURO: Normal sensorium. No sensory or motor deficits noted. SKIN: No rash or jaundice noted. Medical Decision & Procedures ER Provider Diagnostic Interpretation: Radiology results as stated below per my review and radiologist interpretation: ABDOMEN 2VIEW W/PA CHEST RTN CLINICAL HISTORY: 43 years-old Female presenting with Pt c/o RUQ, shortness of breath, chills. TECHNIQUE: PA view of the chest and supine and upright views of the abdomen were obtained. COMPARISON: 07/25/2017. FINDINGS: Cardiomediastinal silhouette normal. No focal opacity. No large effusion or pneumothorax. Moderate stool burden throughout the colon. Nonobstructive bowel gas pattern. No gross pneumoperitoneum. Allowing for bowel gas and stool, no calcifications to suggest nephrolithiasis. Posterior lumbar fusion of L5-S1 with interbody spacer. IMPRESSION: 1. No acute cardiopulmonary disease. 2. No radiographic evidence of acute intra-abdominal pathology. Electronically signed by: Jc Lal M.D. 03/08/2018 1:05 PM Dictated Date/Time: 03/08/2018 1:04 PM Laboratory Results 03/08/18 12:07 Red Blood Count 4.60, Mean Corpuscular Volume 84.1, Mean Corpuscular Hemoglobin 28.7, Mean Corpuscular Hemoglobin Concent 34.1, Mean Platelet Volume 8.6, Neutrophils (%) (Auto) 61.9, Lymphocytes (%) (Auto) 21.3, Monocytes (%) (Auto) 9.1, Eosinophils (%) (Auto) 7.2, Basophils (%) (Auto) 0.2, Neutrophils # (Auto) 6.76, Lymphocytes # (Auto) 2.33, Monocytes # (Auto) 0.99, Eosinophils # (Auto) 0.79, Basophils # (Auto) 0.02 03/08/18 12:07 Test 03/08/18 12:07 03/08/18 12:08 White Blood Count 10.92 K/uL (4.8-10.8) Red Blood Count 4.60 M/uL (4.2-5.4) Hemoglobin 13.2 g/dL (12.0-16.0) Hematocrit 38.7 % (37-47) Mean Corpuscular Volume 84.1 fL (80-100) Mean Corpuscular Hemoglobin 28.7 pg (25-34) Mean Corpuscular Hemoglobin Concent 34.1 g/dl (32-36) Platelet Count 261 K/uL (130-400) Mean Platelet Volume 8.6 fL (7.4-10.4) Neutrophils (%) (Auto) 61.9 % Lymphocytes (%) (Auto) 21.3 % Monocytes (%) (Auto) 9.1 % Eosinophils (%) (Auto) 7.2 % Basophils (%) (Auto) 0.2 % Neutrophils # (Auto) 6.76 K/uL (1.4-6.5) Lymphocytes # (Auto) 2.33 K/uL (1.2-3.4) Monocytes # (Auto) 0.99 K/uL (0.11-0.59) Eosinophils # (Auto) 0.79 K/uL (0-0.5) Basophils # (Auto) 0.02 K/uL (0-0.2) RDW Standard Deviation 38.2 fL (36.4-46.3) RDW Coefficient of Variation 12.6 % (11.5-14.5) Immature Granulocyte % (Auto) 0.3 % Immature Granulocyte # (Auto) 0.03 K/uL (0.00-0.02) D-Dimer 360 ug/L FEU (0-500) Anion Gap 6.0 mmol/L (3-11) Est Creatinine Clear Calc Drug Dose 142.7 ml/min Estimated GFR () 123.3 Estimated GFR (Non- 106.4 BUN/Creatinine Ratio 12.5 (10-20) Calcium Level 9.0 mg/dl (8.5-10.1) Total Bilirubin 0.2 mg/dl (0.2-1) Aspartate Amino Transf (AST/SGOT) 13 U/L (15-37) Alanine Aminotransferase (ALT/SGPT) 21 U/L (12-78) Alkaline Phosphatase 104 U/L (45-117) Total Protein 7.8 gm/dl (6.4-8.2) Albumin 3.8 gm/dl (3.4-5.0) Globulin 4.0 gm/dl (2.5-4.0) Albumin/Globulin Ratio 1.0 (0.9-2) Urine Color YELLOW Urine Appearance CLOUDY (CLEAR) Urine pH 6.5 (4.5-7.5) Urine Specific [place] 1.021 (1.000-1.030) Urine Protein NEG (NEG) Urine Glucose (UA) NEG (NEG) Urine Ketones NEG (NEG) Urine Occult Blood TRACE (NEG) Urine Nitrite NEG (NEG) Urine Bilirubin NEG (NEG) Urine Urobilinogen NEG (NEG) Urine Leukocyte Esterase MODERATE (NEG) Urine WBC (Auto) 10-30 /hpf (0-5) Urine RBC (Auto) 5-10 /hpf (0-4) Urine Hyaline Casts (Auto) 1-5 /lpf (0-5) Urine Epithelial Cells (Auto) >30 /lpf (0-5) Urine Bacteria (Auto) 3+ (NEG) Urine Renal Epithelial Cells /lpf (0-5) Urine Pathogenic Casts /lpf (0) Urine Test NEG (NEG) Labs reviewed by ED physician. Medications Administered Medications (Trade) Dose Ordered Sig/Naveen Route Start Time Stop Time Status Last Admin Dose Admin Albuterol/ Ipratropium (Duoneb) 12 ml ONE ONCE INH 03/08/18 12:00 03/08/18 12:04 DC 03/08/18 12:15 12 ML Methylprednisolone Sodium Succinate (Solu-Medrol IV) 125 mg NOW STAT IV 03/08/18 11:59 03/08/18 12:04 DC 03/08/18 11:59 125 MG Hydromorphone HCl (Dilaudid Inj) 1 mg NOW STAT IV 03/08/18 11:59 03/08/18 12:04 DC 03/08/18 11:59 1 MG Ondansetron HCl (Zofran Inj) 4 mg NOW STAT IV 03/08/18 11:59 03/08/18 12:04 DC 03/08/18 11:59 4 MG Ceftriaxone Sodium (Rocephin Inj) 1 gm NOW STAT IV 03/08/18 12:51 03/08/18 12:52 DC 03/08/18 13:02 1 GM Potassium Chloride (Klor-Con Tab) 40 meq NOW STAT PO 03/08/18 12:52 03/08/18 12:53 DC 03/08/18 12:52 40 MEQ Ranitidine HCl (zANTac TAB) 150 mg NOW STAT PO 03/08/18 13:12 03/08/18 13:13 DC 03/08/18 13:45 150 MG Albuterol (Ventolin Hfa Inhaler) 2 puffs NOW STAT INH 03/08/18 13:51 03/08/18 13:52 DC 03/08/18 13:51 2 PUFFS ECG Per My Interpretation Indication: SOB/dyspnea Rate (beats per minute): 98 Rhythm: normal sinus Findings: other (No RANDY/STD) ED Course 1157: Past medical records reviewed. The patient was evaluated in room C6. A complete history and physical examination was performed. 1159: Ordered Zofran 4 mg IV, Dilaudid 1 mg IV, Solu-Medrol 125 mg IV, DuoNeb 12 mL INH. 1251: Ordered Rocephin 1 gm IV, Potassium Chloride 40 meq PO. 1312: Ordered zANTac TAB 150 mg PO. 1351: Ordered Albuterol 2 Puffs. 1404: Upon reexamination the patient is resting in bed. I discussed results and treatment plan with the patient. She verbalizes agreement and understanding. The patient is ready for discharge. Medical Decision Differential diagnosis: Etiologies such as infections, reactive airway disease, pneumonia, pneumothorax , COPD, CHF, cardiac ischemia, pulmonary embolism, musculoskeletal, gastrointestinal, as well as others were entertained. This is a 43-year-old female who presents emergency department with multiple complaints. The patient is complaining of right upper quadrant abdominal pain along with shortness of breath. I will note that the patient appears to be hyperventilating and is satting 100% on room air. In addition the patient is also complaining of an urticarial rash bilaterally to the legs. Based on the numerous complaints I felt the best course of action was to give the patient a breathing treatment along with steroids Benadryl and Zantac. Repeat examination revealed improvement the patient's symptoms I will note that the patient has a normal d-dimer and normal troponin as well as EKG. An ultrasound of the right upper quadrant does not show any acute gallbladder issues. I feel the patient can be safely discharged home at this point with an albuterol inhaler on a prednisone taper. Patient was in agreement with the treatment plan. Impression Primary Impression: Acute bronchitis Additional Impression: RUQ abdominal pain Scribe Attestation The scribe's documentation has been prepared under my direction and personally reviewed by me in its entirety. I confirm that the note above accurately reflects all work, treatment, procedures, and medical decision making performed by me. Departure Information Dispostion Home / Self-Care Prescriptions Ciprofloxacin Hcl (CIPRO) 500 Mg Tab 1 TAB PO BID for 7 Days, #14 TAB Prov: Gianni Kiran MD 03/08/18 Ranitidine Hcl (ZANTAC) 150 Mg Tab 150 MG PO BID for 5 Days, #10 TAB Prov: Gianni Kiran MD 03/08/18 Prednisone (Prednisone Tab) 20 Mg Tab 0 PO DAILY, #7 TAB 2 TABS DAILY FOR 2 DAYS, THEN 1 TAB DAILY FOR 2 DAYS, THEN 1/2 TAB DAILY FOR 2 DAYS. Prov: Gianni Kiran MD 03/08/18 Referrals Nicolas Britt M.D. (PCP) Forms HOME CARE DOCUMENTATION FORM, IMPORTANT VISIT INFORMATION Patient Instructions My [facility] Additional Instructions Take 50 mg Benadryl every 6 hours as needed Use inhaler twice every 6 hours You received narcotic or benzodiazepene medication while in the emergency room today. This is an addictive medication that may cause drowziness as well as constipation. Do not drive, operate heavy machinery, or drink alcohol under the influence of this medication. You have been examined and treated today on an emergency basis only. This is not a substitute for, or an effort to provide, complete comprehensive medical care. It is impossible to recognize and treat all injuries or illnesses in a single emergency department visit. It is therefore important that you follow up closely with Dr Britt. Call as soon as possible for an appointment. Thank you for your time and consideration. I look forward to speaking with you again soon. Please don't hesitate to call us if you have any questions. Problem Qualifiers Primary Impression: Acute bronchitis Bronchitis organism: unspecified organism Qualified Codes: J20.9 - Acute bronchitis, unspecified
[2018-03-08] MEDS ORDERED: DIPH1CAP34 PO (12:18)
[2018-03-08] MEDS ORDERED: CYM/60 PO (12:18)
[2018-03-08] MEDS ORDERED: GABA-113 PO (12:18)
[2018-03-08 12:20] LABS: BASO % 0.2 %; BASO ABS # 0.02 K/uL (0-0.2); EOS % 7.2 %; EOS ABS # 0.79 K/uL (0-0.5); HEMATOCRIT 38.7 % (37-47); HEMOGLOBIN 13.2 g/dL (12.0-16.0); IG# 0.03 K/uL (0.00-0.02); LYMPH % 21.3 %; LYMPH ABS # 2.33 K/uL (1.2-3.4); MEAN CELL VOLUME 84.1 fL (80-100); MEAN CORPUSCULAR HEMOGLOBIN 28.7 pg (25-34); MEAN CORPUSCULAR HGB CONC 34.1 g/dl (32-36); MEAN PLATELET VOLUME 8.6 fL (7.4-10.4); MONO % 9.1 %; MONO ABS # 0.99 K/uL (0.11-0.59); NEUT % 61.9 %; NEUT ABS # 6.76 K/uL (1.4-6.5); PLATELET COUNT 261 K/uL (130-400); RED CELL DISTRIBUTION WIDTH CV 12.6 % (11.5-14.5); RED CELL DISTRIBUTION WIDTH SD 38.2 fL (36.4-46.3); WHITE BLOOD COUNT 10.92 K/uL (4.8-10.8)
[2018-03-08 12:25] VITALS: PULSE 88; O2SAT 99
[2018-03-08 12:37] LABS: ALBUMIN 3.8 gm/dl (3.4-5.0); CREATININE 0.68 mg/dl (0.60-1.20); POTASSIUM 3.5 mmol/L (3.5-5.1)
[2018-03-08 12:40] LABS: TOTAL PROTEIN 7.8 gm/dl (6.4-8.2)
[2018-03-08] MEDS ORDERED: CEFTRIAXONE SOD INJ 1 GM ADDVIAL IV STA (12:51)
[2018-03-08] MEDS ORDERED: POTASSIUM CHLORIDE 20 MEQ TABCR PO STA (12:52)
[2018-03-08] MEDS ORDERED: POTASSIUM CHLORIDE 10 MEQ TABCR ONE (12:58)
--- NOTE | 2018-03-08 13:07 | DIAGNOSTIC IMAGING REPORT ---
ABDOMEN 2VIEW W/PA CHEST RTN CLINICAL HISTORY: 43 years-old Female presenting with Pt c/o RUQ, shortness of breath, chills. TECHNIQUE: PA view of the chest and supine and upright views of the abdomen were obtained. COMPARISON: 07/25/2017. FINDINGS: Cardiomediastinal silhouette normal. No focal opacity. No large effusion or pneumothorax. Moderate stool burden throughout the colon. Nonobstructive bowel gas pattern. No gross pneumoperitoneum. Allowing for bowel gas and stool, no calcifications to suggest nephrolithiasis. Posterior lumbar fusion of L5-S1 with interbody spacer. IMPRESSION: 1. No acute cardiopulmonary disease. 2. No radiographic evidence of acute intra-abdominal pathology. Electronically signed by: Jc Lal M.D. 03/08/2018 1:05 PM Dictated Date/Time: 03/08/2018 1:04 PM
[2018-03-08] MEDS ORDERED: RANITIDINE HCL 150 MG TAB PO STA (13:12)
--- NOTE | 2018-03-08 13:42 | DIAGNOSTIC IMAGING REPORT ---
BILIARY ULTRASOUND CLINICAL HISTORY: Right upper quadrant abdominal pain COMPARISON STUDY: 07/13/2016 FINDINGS: The study was difficult due to the patient's body habitus and excessive bowel gas. No hepatic masses were visualized. The gallbladder. Normal as visualized. No pancreatic abnormalities were visualized. Portions the pancreas were obscured by bowel gas shadowing. There is no ductal dilatation. The common buttock measures 5 mm. There is no right-sided hydronephrosis. IMPRESSION: Somewhat limited study from a technical standpoint. No abnormalities identified. Electronically signed by: Sacha Fgiueroa M.D. 03/08/2018 1:41 PM Dictated Date/Time: 03/08/2018 1:40 PM
[2018-03-08] MEDS ORDERED: ALBUTEROL HFA 8 GM INHALER INH STA (13:51)
[2018-03-08] MEDS ORDERED: RANI150T3 PO (13:54)
[2018-03-08] MEDS ORDERED: PRED20TA2 PO (13:54)
[2018-03-08 14:17] VITALS: BP 106/67; PULSE 80; O2SAT 100
[2018-03-08] MEDS ORDERED: CIPR-255 PO (14:24)
== END 2018-03-08 14:40 | disposition home or self-care (01) ==
LOC: C.EDB 11:23 → C.EDC 14:40
DX: J20.9 Acute bronchitis, unspecified (principal); R06.02 Shortness of breath; R10.11 Right upper quadrant pain; R21 Rash and other nonspecific skin eruption

== ENCOUNTER 2018-12-05 17:55 | Inpatient (IN) ==
[2018-12-05] MEDS ORDERED: MoRPHine SULFATE 4 MG/ML 1 ML CARP\\VIAL IV STA (18:16)
[2018-12-05] MEDS ORDERED: ONDANSETRON INJ 2 MG/ML 2 ML VIAL IV STA (18:16)
[2018-12-05] MEDS ORDERED: KETOROLAC TROMETHAMINE 15 MG/ML VIAL IV STA (18:16)
[2018-12-05] MEDS ORDERED: SODIUM CHLORIDE 0.9% 1000ML 1,000 ML IV SCH (18:30)
[2018-12-05 18:47] LABS: Basophils # (auto) 0.03 K/uL (0-0.2); Basophils % (auto) 0.3 %; Eosinophils # (auto) 0.22 K/uL (0-0.5); Eosinophils % (auto) 1.9 %; Hematocrit (blood only) 35.5 % (37-47); Immature Granulocytes # (auto) 0.02 K/uL (0.00-0.02); Immature Granulocytes % (auto) 0.2 %; Lymphocytes # (auto) 1.18 K/uL (1.2-3.4); Lymphocytes % (auto) 10.1 %; Mean Corpuscular Hgb Conc 33.8 g/dL (32-36); Mean Corpuscular Volume 84.5 fL (80-100); Mean Platelet Volume 8.9 fL (7.4-10.4); Monocytes # (auto) 0.98 K/uL (0.11-0.59); Monocytes % (auto) 8.4 %; Neutrophils % (auto) 79.1 %; Platelet Count 252 K/uL (130-400); RDW Coefficient of Variation 12.5 % (11.5-14.5); RDW Standard Deviation 38.1 fL (36.4-46.3); White Blood Count 11.73 K/uL (4.8-10.8)
[2018-12-05 19:00] LABS: Appearance Urine Turbid (Clear); Bacteria Urine Automated 4+ (Negative); Bilirubin Urine Negative (Negative); Color Urine Dark Yellow; Epithelial Cell Urine Auto >30 /lpf (0-5); Glucose Urine UA Negative (Negative); Ketones Urine Negative (Negative); Leukocyte Esterase Urine 3+ (Negative); Nitrite Urine Positive (Negative); Protein Urine 1+ (Negative); Specific Gravity Urine 1.019 (1.000-1.030); Urobilinogen Urine Negative (Negative); WBC Urine Automated >30 /hpf (0-5); pH Urine 6.5 (4.5-7.5)
[2018-12-05 19:06] LABS: Albumin Level 3.4 gm/dl (3.4-5.0); BUN Creatinine Ratio 10.9 (10-20); Calcium 8.7 mg/dl (8.5-10.1); Creatinine Clr Calc Pharmacy 116.3 ml/min; Est GFR (Non-African American) 84.5; Potassium 3.5 mmol/L (3.5-5.1)
[2018-12-05 19:08] LABS: Albumin Globulin Ratio 0.9 (0.9-2); Bilirubin,Total 0.5 mg/dl (0.2-1); Globulin 3.8 gm/dl (2.5-4.0); Total Protein 7.2 gm/dl (6.4-8.2)
[2018-12-05] MEDS ORDERED: IOVERSOL 100ml IV PRN (19:38)
--- NOTE | 2018-12-05 19:52 | CT Scan Report ---
CT abd pelvis IV con only CT DOSE: 1416.75 mGy.cm HISTORY: Flank pain right flank pain fever, ? stone vs infection TECHNIQUE: Multiaxial CT images of the abdomen and pelvis were performed following the use of intrave nous contrast. A dose lowering technique was utilized adhering to the principles of ALARA. COMPARISON STUDY: 10/06/2008 FINDINGS: Lung bases are clear. Liver is uniform in appearance. Prior cholecystectomy. Spleen is unre markable. Left renal peripelvic cyst unchanged. Mild right renal hydroureteronephrosis. Slight enhancement of t he right ureter urothelial epithelium. A well-defined obstructing calculus is not seen. Differential considerations include a nonvisualized calculus, right renal pyelonephritis, versus the possibility o f recently passed calculus. Bladder is mildly distended. There are no definite bladder calcifications. Nonobstructive bowel patte rn. Normal appendix. IMPRESSION: 1. Nonspecific right renal hydroureteronephrosis. 2.. Right ureter is moderately distended to the level of the low right soft tissue pelvis although an obs tructing etiology is not confirmed. 3. Diagnostic considerations include recently passed calculus, pyelonephritis, versus the possibility of nonvisualized punctate calcification. The above report was generated using voice recognition software. It may contain grammatical, syntax or spelling errors. Electronically signed by: Haja Mckenna M.D. 12/05/2018 7:50 PM
[2018-12-05] MEDS ORDERED: CEFEPIME 2,000 MG in SYRINGE 7.5 ML IV STA (20:08)
[2018-12-05] MEDS ORDERED: SODIUM CHLORIDE 0.9% 1000ML 1,000 ML IV ONE (20:09)
[2018-12-05] MEDS ORDERED: HYDROmorphone INJ 0.5 MG/0.5 ML SYR IV STA (20:14)
[2018-12-05] MEDS ORDERED: PROCHLORPERAZINE 5 MG in SYRINGE 4 ML IV ONE (20:14)
[2018-12-05] MEDS ORDERED: PROCHLORPERAZINE 5 MG/ML 2 ML VIAL ONE (20:30)
--- NOTE | 2018-12-05 21:36 | XRay Report ---
XR KUB CLINICAL HISTORY: pain, retained contrast?, stone/hydro COMPARISON STUDY: CT 12/05/2018 FINDINGS: Matthews catheter placed in the bladder. No evidence for hydronephrosis based on this exam. No nobstructive bowel pattern. IMPRESSION: No evidence for hydronephrosis post Matthews catheter insertion. The above report was generated using voice recognition software. It may contain grammatical, syntax or spelling errors. Electronically signed by: Haja Mckenna M.D. 12/05/2018 9:35 PM
--- NOTE | 2018-12-05 22:03 | History & Physical Report ---
Date of Service December 05, 2018 Assessment & Plan (1) Pyelonephritis: Patient febrile, leukocytosis with WBC=11.73, neutrophil predominant, +UA , CT with possible pyelonephritis. Afebrile, hemodynamically stable and non- toxic in appearance at present. -Admit to medical floor -Follow blood and urine culture results -Cefepime 1gm IV BID -Matthews catheter in place, manage q shift -NSS at 100mL/hr x 2 liters -Nausea control with Zofran PRN -Pain control with Dilaudid and Toradol PRN (2) Hydronephrosis: Concern for possible stone initially. Matthews catheter placed in ER. KUB obtained after Matthews placement with no persistent evidence of hydronephrosis. Doubt presence of stone -Strain urine -Pain and nausea control as above -Consider Urology consultation if patient's clinical condition declines or if suspicion for stone (3) Migraine: Chronic. Stable (4) GERD (gastroesophageal reflux disease): Chronic. Stable F/E/N- NSS at 100mL/hr x 2 liters, monitor electrolytes and replete as needed, NPO for now Ppx - low risk for DVT, encourage ambulation Code - Full Dispo - admit to medical floor History of Present Illness Chief Complaint: Flank pain Primary Care Provider: Nicolas Britt MD Patient is a 43yo C female with history of Migraine, GERD presenting with possible pyelonephritis. She reports two weeks of urinary complaints, dysuria and sharp/stabbing pain with urination. Yesterday 12/04/18 she developed worsening urinary discomfort, pain in the right flank with radiation into the groin. Fevers at home to 103.6, nausea with 2 episodes of non-bloody/non- bilious vomiting and needing to strain to urinate as well as feeling disoriented. Patient had a syncopal episode at home this afternoon which prompted her to come to the ER. She reports that she was walking to the kitchen when she became light headed, her vision became dark and tunneled and she lowered herself to the floor. The episode was witnessed by her daughter who reported to seizure activity, incontinence. Patient was blacked out for less than one minute. No additional complaints at this time. She is still having discomfort in the right flank to suprapubic region. ER Course: Phenergan, Dilaudid, Cefepime, NSS, Morphine, Toradol, Zofran Allergies Allergy/AdvReac Type Severity Reaction Status Date / Time No Known Drug Allergies Allergy Unknown NONE Verified 08/22/18 09:33 carrot AdvReac Unknown GI SYMPTOMS Verified 08/22/18 09:33 chicken derived AdvReac Unknown GI UPSET Verified 08/22/18 09:33 corn AdvReac Unknown GI SYMPTOMS Verified 08/22/18 09:33 grape AdvReac Unknown GI SYMPTOMS Verified 08/22/18 09:33 potato AdvReac Unknown GI SYMPTOMS Verified 08/22/18 09:33 Home Medications Home Medications Medication Instructions Recorded Confirmed Type gabapentin 900 mg PO TID 08/17/18 12/05/18 History ondansetron 8 mg PO TID PRN 08/17/18 12/05/18 History Past Med/Surg History Medical History Migraine GERD (gastroesophageal reflux disease) Schatzki's ring S/P DILATION Chronic back pain LLE RADICULOPATHY Osteoarthritis Difficult intubation L5-S1 DECOMPRESSION/FUSION= 07/21/17= GLIDESCOPE#3, ETT 7.0 [facility] Surgical History Fusion of spine History of esophagogastroduodenoscopy (EGD) WITH DILITATION Nausea and vomiting after administration of anesthetic agent Family History Other Family history non-contributory Social History Current Living Situation: Spouse and Family Feels Safe at Home: Yes Smoking Status: Never smoker Second Hand Exposure: No Hx Alcohol Use: Yes Alcohol type: wine Alcohol Intake Frequency: other Hx Substance Use: No Beliefs That Will Affect Care: None Visual Impairment: No Limitations Review of Systems All systems reviewed & are unremarkable except as noted in HPI & below Physical Exam 2 Vital Signs (Past 24 Hours): Last Vital Signs Temp 37.5 C 12/05/18 18:00 Pulse 93 H 12/05/18 20:39 Resp 18 12/05/18 20:39 BP 103/46 L 12/05/18 20:39 Pulse Ox 97 12/05/18 20:39 Physical Exam: General: patient resting comfortably, NAD, in mild pain, non- toxic in appearance, AA&O x 4 Skin: warm, dry, intact, no rashes or lesions HEENT: NC/AT, PERRL, EOMI, anicteric sclera, conjunctiva without injection, external ear normal to inspection and nontender, nares patent, moist mucus membranes, dentition intact, no oropharyngeal lesions, neck supple, trachea midline, no LAD, no thyromegaly, no JVD Heart: +S1/S2, regular, no m/r/g Lungs: equal air entry bilaterally, no rales/rhonchi/wheezes Abd: +BS, soft, +right CVA tenderness, tenderness of flank/groin/suprapubic region on right, no masses/organomegaly/ascites Ext: warm, 2+ pulses in UE/LE bilaterally, no clubbing/cyanosi, trace pitting edema of bilateral LE Neuro: nonfocal, patient AA&O x 4, speech intact, no facial droop, moving all extremities on command with equal strength 5/5 Results & Data Laboratory Results Lab Results 12/05/18 12/05/18 12/05/18 Range/Units 18:25 18:25 18:25 WBC 11.73 H (4.8-10.8) K/uL RBC 4.20 (4.2-5.4) M/uL Hgb 12.0 (12.0-16.0) g/dL Hct 35.5 L (37-47) % MCV 84.5 (80-100) fL MCH 28.6 (25-34) pg MCHC 33.8 (32-36) g/dL RDW Std Deviation 38.1 (36.4-46.3) fL RDW Coeff of Lucina 12.5 (11.5-14.5) % Plt Count 252 (130-400) K/uL MPV 8.9 (7.4-10.4) fL Immature Gran % (Auto) 0.2 % Neut % (Auto) 79.1 % Lymph % (Auto) 10.1 % [place] % (Auto) 8.4 % Eos % (Auto) 1.9 % Baso % (Auto) 0.3 % Immature Gran # (Auto) 0.02 (0.00-0.02) K/uL Neut # (Auto) 9.30 H (1.4-6.5) K/uL Lymph # (Auto) 1.18 L (1.2-3.4) K/uL [place] # (Auto) 0.98 H (0.11-0.59) K/uL Eos # (Auto) 0.22 (0-0.5) K/uL Baso # (Auto) 0.03 (0-0.2) K/uL Sodium 136 (136-145) mmol/L Potassium 3.5 (3.5-5.1) mmol/L Chloride 103 (98-107) mmol/L Carbon Dioxide 25 (21-32) mmol/L Anion Gap 9.0 (3-11) BUN 9 (7-18) mg/dl Creatinine 0.84 (0.6-1.2) mg/dl Est Cr Clr Drug Dosing 116.3 ml/min Est GFR ( Amer) 98.0 Est GFR (Non-Af Amer) 84.5 BUN/Creatinine Ratio 10.9 (10-20) Glucose 117 H (70-99) mg/dl Lactate 1.4 (0.4-2.0) mmol/L Calcium 8.7 (8.5-10.1) mg/dl Total Bilirubin 0.5 (0.2-1) mg/dl AST 31 (15-37) U/L ALT 34 (12-78) U/L Alkaline Phosphatase 122 H (45-117) U/L Total Protein 7.2 (6.4-8.2) gm/dl Albumin 3.4 (3.4-5.0) gm/dl Globulin 3.8 (2.5-4.0) gm/dl Albumin/Globulin Ratio 0.9 (0.9-2) Lipase 101 (73-393) U/L Urine Color Urine Appearance (Clear) Urine pH (4.5-7.5) Ur Specific [place] (1.000-1.030) Urine Protein (Negative) Urine Glucose (UA) (Negative) Urine Ketones (Negative) Urine Blood (Negative) Urine Nitrite (Negative) Urine Bilirubin (Negative) Urine Urobilinogen (Negative) Ur Leukocyte Esterase (Negative) Urine WBC (Auto) (0-5) /hpf Urine RBC (Auto) (0-4) /hpf U Hyaline Cast (Auto) (0-5) /lpf U Epithel Cells (Auto) (0-5) /lpf Urine Bacteria (Auto) (Negative) POC Ur Test (NEG) 12/05/18 12/05/18 Range/Units 18:40 18:40 WBC (4.8-10.8) K/uL RBC (4.2-5.4) M/uL Hgb (12.0-16.0) g/dL Hct (37-47) % MCV (80-100) fL MCH (25-34) pg MCHC (32-36) g/dL RDW Std Deviation (36.4-46.3) fL RDW Coeff of Lucina (11.5-14.5) % Plt Count (130-400) K/uL MPV (7.4-10.4) fL Immature Gran % (Auto) % Neut % (Auto) % Lymph % (Auto) % [place] % (Auto) % Eos % (Auto) % Baso % (Auto) % Immature Gran # (Auto) (0.00-0.02) K/uL Neut # (Auto) (1.4-6.5) K/uL Lymph # (Auto) (1.2-3.4) K/uL [place] # (Auto) (0.11-0.59) K/uL Eos # (Auto) (0-0.5) K/uL Baso # (Auto) (0-0.2) K/uL Sodium (136-145) mmol/L Potassium (3.5-5.1) mmol/L Chloride (98-107) mmol/L Carbon Dioxide (21-32) mmol/L Anion Gap (3-11) BUN (7-18) mg/dl Creatinine (0.6-1.2) mg/dl Est Cr Clr Drug Dosing ml/min Est GFR ( Amer) Est GFR (Non-Af Amer) BUN/Creatinine Ratio (10-20) Glucose (70-99) mg/dl Lactate (0.4-2.0) mmol/L Calcium (8.5-10.1) mg/dl Total Bilirubin (0.2-1) mg/dl AST (15-37) U/L ALT (12-78) U/L Alkaline Phosphatase (45-117) U/L Total Protein (6.4-8.2) gm/dl Albumin (3.4-5.0) gm/dl Globulin (2.5-4.0) gm/dl Albumin/Globulin Ratio (0.9-2) Lipase (73-393) U/L Urine Color Dark Yellow Urine Appearance Turbid H (Clear) Urine pH 6.5 (4.5-7.5) Ur Specific [place] 1.019 (1.000-1.030) Urine Protein 1+ H (Negative) Urine Glucose (UA) Negative (Negative) Urine Ketones Negative (Negative) Urine Blood 2+ H (Negative) Urine Nitrite Positive H (Negative) Urine Bilirubin Negative (Negative) Urine Urobilinogen Negative (Negative) Ur Leukocyte Esterase 3+ H (Negative) Urine WBC (Auto) >30 H (0-5) /hpf Urine RBC (Auto) 10-30 H (0-4) /hpf U Hyaline Cast (Auto) 1-5 (0-5) /lpf U Epithel Cells (Auto) >30 H (0-5) /lpf Urine Bacteria (Auto) 4+ H (Negative) POC Ur Test NEG (NEG) Diagnostic Findings CT abd pelvis IV con only CT DOSE: 1416.75 mGy.cm HISTORY: Flank pain right flank pain fever, ? stone vs infection TECHNIQUE: Multiaxial CT images of the abdomen and pelvis were performed following the use of intravenous contrast. A dose lowering technique was utilized adhering to the principles of ALARA. COMPARISON STUDY: 10/06/2008 FINDINGS: Lung bases are clear. Liver is uniform in appearance. Prior cholecystectomy. Spleen is unremarkable. Left renal peripelvic cyst unchanged. Mild right renal hydroureteronephrosis. Slight enhancement of the right ureter urothelial epithelium. A well-defined obstructing calculus is not seen. Differential considerations include a nonvisualized calculus, right renal pyelonephritis, versus the possibility of recently passed calculus. Bladder is mildly distended. There are no definite bladder calcifications. Nonobstructive bowel pattern. Normal appendix. IMPRESSION: 1. Nonspecific right renal hydroureteronephrosis. 2.. Right ureter is moderately distended to the level of the low right soft tissue pelvis although an obstructing etiology is not confirmed. 3. Diagnostic considerations include recently passed calculus, pyelonephritis, versus the possibility of nonvisualized punctate calcification. The above report was generated using voice recognition software. It may contain grammatical, syntax or spelling errors. Electronically signed by: Haja Mckenna M.D. 12/05/2018 7:50 PM Dictated: 12/05/181941 XR KUB CLINICAL HISTORY: pain, retained contrast?, stone/hydro COMPARISON STUDY: CT 12/05/2018 FINDINGS: Matthews catheter placed in the bladder. No evidence for hydronephrosis based on this exam. Nonobstructive bowel pattern. IMPRESSION: No evidence for hydronephrosis post Matthews catheter insertion. The above report was generated using voice recognition software. It may contain grammatical, syntax or spelling errors. Electronically signed by: Haja Mckenna M.D. 12/05/2018 9:35 PM Dictated: 12/05/[id number] Transcribed: 12/05/182132 Code Status & VTE Plan Code Status FULL VTE Prophylaxis Plan VTE Prophylaxis will be ordered: No Critical Care Time Critical Care Time: No _ (1) Hydronephrosis Hydronephrosis type: unspecified Qualified Code(s): N13.30 - Unspecified hydronephrosis (2) Migraine Migraine type: unspecified Status migrainosus presence: without status migrainosus Intractability: not intractable Qualified Code(s): G43.909 - Migraine, unspecified, not intractable, without status migrainosus (3) GERD (gastroesophageal reflux disease) Esophagitis presence: esophagitis presence not specified Qualified Code(s): K21.9 - Gastro-esophageal reflux disease without esophagitis
[2018-12-05] MEDS ORDERED: DOCUSATE SODIUM 100 MG CAP PO PRN (22:41)
[2018-12-06] MEDS: SODIUM CHLORIDE 0.9% 500 ML IV SCH ×2 (00:30→05:54)
[2018-12-06] MEDS: KETOROLAC TROMETHAMINE 15 MG/ML VIAL IV PRN ×2 (00:34→17:41)
--- NOTE | 2018-12-06 00:44 | Emergency Department Note ---
Entered by Keanu Mcdonald acting as a scribe for James Small M.D. History of Present Illness General Chief complaint: Kidney Stone Stated complaint: POSSIBLE KIDNEY STONES, FEVER OF 104 Source: patient History of Present Illness Provider complaint: Abdominal pain Onset (ago): day(s) Location: abdomen Radiation: other (belly button, up into bladder) Maximum Pain Intensity: 10 Quality: + stabbing Associated symptoms: + fever/chills, + nausea/vomiting and + other (neck and back pain) The patient is a 43 year old female who presents to the Emergency Room with complaints of abdominal pain that started over the last several days. The patient reports pain in her right flank that feels like a knife in her belly button. The patient notes the pain radiates up when she pees. The patient rates her overall pain as a 10/10. The patient adds she has nausea/vomiting, and a fever. The patient states that a few hours ago she almost passed out due to the pain. The patient adds that she was consuming fluids and the pain seemed to go away but then it returned. The patient reports that she has not had anything to eat for the past several hours. Additionally, she adds that she took leftover Zofran she had and tried to take some Dayquil, but she vomited the Dayquil up. The patient adds that she has neck pain and back pain that radiates into her right side. She notes that she has a past surgical history of a cholecystectomy and back surgery. The patient adds that she has a family history of kidney stones. The patient reports that her last menstrual period was a week ago and she denies the chance of being . Home Medications Home Medications Medication Instructions Recorded Confirmed Type gabapentin 900 mg PO TID 08/17/18 12/05/18 History ondansetron 8 mg PO TID PRN 08/17/18 12/05/18 History Allergies Allergy/AdvReac Type Severity Reaction Status Date / Time No Known Drug Allergies Allergy Unknown NONE Verified 08/22/18 09:33 carrot AdvReac Unknown GI SYMPTOMS Verified 08/22/18 09:33 chicken derived AdvReac Unknown GI UPSET Verified 08/22/18 09:33 corn AdvReac Unknown GI SYMPTOMS Verified 08/22/18 09:33 grape AdvReac Unknown GI SYMPTOMS Verified 08/22/18 09:33 potato AdvReac Unknown GI SYMPTOMS Verified 08/22/18 09:33 Past Med/Surg History Medical History Migraine GERD (gastroesophageal reflux disease) Schatzki's ring S/P DILATION Chronic back pain LLE RADICULOPATHY Osteoarthritis Difficult intubation L5-S1 DECOMPRESSION/FUSION= 07/21/17= GLIDESCOPE#3, ETT 7.0 AT [facility] Surgical History Fusion of spine History of esophagogastroduodenoscopy (EGD) WITH DILITATION Nausea and vomiting after administration of anesthetic agent Social History Current Living Situation: Spouse and Family Feels Safe at Home: Yes Smoking Status: Never smoker Second Hand Exposure: No Hx Alcohol Use: Yes Alcohol type: wine Alcohol Intake Frequency: other Hx Substance Use: No Beliefs That Will Affect Care: None Visual Impairment: No Limitations Review of Systems See HPI for pertinent positives & negatives. and A total of 10 systems reviewed and were otherwise negative Physical Exam Vital Signs Vital Signs - 24 hr 12/05/18 18:00 12/05/18 18:47 12/05/18 19:50 Temperature 37.5 C Temperature Source Oral Sepsis Recent Fever Within 48 Hours Yes Sepsis New/Unexplained Change in Mental Status No Sepsis Action Taken by Nursing No Action Required Pulse Rate 116 H 96 H Pulse Rate [Finger] 95 H Pulse Rhythm Regular Respiratory Rate 20 18 Respiratory Effort / Characteristics Non-Labored Respiratory Depth Normal Respiratory Pattern Blood Pressure 150/87 H Blood Pressure [Left Arm] Blood Pressure [Right Arm] 93/41 L Blood Pressure Mean 108 Blood Pressure Mean [Left Arm] Blood Pressure Mean [Right Arm] 58 Blood Pressure Position Sitting Blood Pressure Position [Left Arm] Pulse Oximetry 97 98 98 Oxygen Delivery Method Room Air Room Air 12/05/18 20:39 12/05/18 22:23 12/05/18 22:42 Temperature 36.5 C Temperature Source Oral Sepsis Recent Fever Within 48 Hours Sepsis New/Unexplained Change in Mental Status Sepsis Action Taken by Nursing Pulse Rate Pulse Rate [Finger] 93 H 79 82 Pulse Rhythm Respiratory Rate 18 18 16 Respiratory Effort / Characteristics Non-Labored Spontaneous Non-Labored Spontaneous Respiratory Depth Normal Normal Respiratory Pattern Regular Blood Pressure Blood Pressure [Left Arm] 117/62 Blood Pressure [Right Arm] 103/46 L 101/48 L Blood Pressure Mean Blood Pressure Mean [Left Arm] 80 Blood Pressure Mean [Right Arm] 65 65 Blood Pressure Position Blood Pressure Position [Left Arm] Lying Pulse Oximetry 97 95 99 Oxygen Delivery Method Room Air Room Air Room Air 12/06/18 00:26 Temperature 37.1 C Temperature Source Oral Sepsis Recent Fever Within 48 Hours Sepsis New/Unexplained Change in Mental Status Sepsis Action Taken by Nursing Pulse Rate Pulse Rate [Finger] Pulse Rhythm Respiratory Rate Respiratory Effort / Characteristics Respiratory Depth Respiratory Pattern Blood Pressure Blood Pressure [Left Arm] Blood Pressure [Right Arm] Blood Pressure Mean Blood Pressure Mean [Left Arm] Blood Pressure Mean [Right Arm] Blood Pressure Position Blood Pressure Position [Left Arm] Pulse Oximetry Oxygen Delivery Method GENERAL: Awake, alert, appears uncomfortable/fatigued, in no distress HENT: Normocephalic, atraumatic. EYES: Normal conjunctiva. Sclera non-icteric. NECK: Supple. No nuchal rigidity. RESPIRATORY: Clear to auscultation. No wheezes. Normal respiratory effort. CARDIAC: Tachycardic. Normal rhythm. Extremities warm and well perfused. GI: Soft, non-distended. Right flank and right sided abdominal tenderness. No rebound. RECTAL: Deferred. MUSCULOSKELETAL: Atraumatic. Chest examination reveals no tenderness. Right sided CVA tenderness LOWER EXTREMITIES: Calves are equal size bilaterally and non-tender. No edema NEURO: Normal sensorium. No sensory or motor deficits noted. No facial droop. SKIN: Warm and dry. No rash or jaundice noted. Course 1810: Past medical records reviewed. The patient was evaluated in room C11B, and a complete history and physical examination were performed. 2026: I reviewed the patient's case with Dr. Juan Houser. He is going to review the scan for possible intervention. 2124: I reviewed the patient's case with Dr. Avila. She will evaluate the patient for further management. Consultations Consultation #1: 2026: I reviewed the patient's case with Dr. Martinez Urologrosibel. He is going to review the scan for possible intervention. Time: 20:27 Consultation #2: 2124: I reviewed the patient's case with Dr. Avila. She will evaluate the patient for further management. Time: 21:25 Administered Medications Sodium Chloride (Nss) 500 mls @ 100 mls/hr IV .Q5H CRIS Stop: 12/06/18 08:40 Last Admin: 12/06/18 00:30 Dose: 100 mls/hr Ketorolac Tromethamine (Toradol) 15 mg IV Q6H PRN PRN Reason: Pain Stop: 12/10/18 22:40 Last Admin: 12/06/18 00:34 Dose: 15 mg Discontinued Medications Hydromorphone HCl (Dilaudid) 0.5 mg IV NOW STA Stop: 12/05/18 20:15 Last Admin: 12/05/18 20:33 Dose: 0.5 mg Sodium Chloride (Nss 1000ml) 1,000 mls @ 999 mls/hr IV .Q1H1M CRIS Stop: 12/05/18 19:30 Last Infusion: 12/05/18 19:43 Dose: 0 mls/hr Admin: 12/05/18 18:41 Dose: 999 mls/hr Sodium Chloride (Nss 1000ml) 1,000 mls @ 999 mls/hr IV .Q1H1M ONE Stop: 12/05/18 21:09 Last Infusion: 12/05/18 21:51 Dose: 0 mls/hr Admin: 12/05/18 20:32 Dose: 999 mls/hr Cefepime HCl 2,000 mg/ Syringe 20 mls @ 5.5 mls/min IV NOW STA Stop: 12/05/18 20:11 Last Admin: 12/05/18 20:32 Dose: 5.5 mls/min Prochlorperazine 5 mg/ Syringe 5 mls @ 5 mls/min IV ONE ONE Stop: 12/05/18 20:15 Last Admin: 12/05/18 20:33 Dose: 5 mls/min Ioversol (Optiray 320 100ml) 95 ml IV ONCE PRN PRN Reason: Interaction Checking Stop: 12/09/18 19:37 Last Admin: 12/05/18 19:38 Dose: 95 ml Ketorolac Tromethamine (Toradol) 15 mg IV NOW STA Stop: 12/05/18 18:17 Last Admin: 12/05/18 18:41 Dose: 15 mg Morphine Sulfate (Morphine Sulfate) 4 mg IV NOW STA Stop: 12/05/18 18:17 Last Admin: 02/12/19 18:42 Dose: Not Given Ondansetron HCl (Zofran) 4 mg IV NOW STA Stop: 12/05/18 18:17 Last Admin: 12/05/18 18:41 Dose: 4 mg Prochlorperazine (Compazine) Confirm Administered Dose 10 mg .ROUTE .STK-MED ONE Stop: 12/05/18 20:31 Last Admin: 12/05/18 20:38 Dose: Not Given Medical Decision Making Differential Diagnosis Differential diagnosis: Etiologies such as appendicitis, diverticulitis, PUD, biliary pathology, UTI, pancreatitis, obstruction, mesenteric ischemia, aortic pathology, infections, inflammatory bowel disease, renal colic, as well as others were entertained. Medical Records Attestation: I reviewed the patient's medical records. Home Medications Current Medication List: was personally reviewed by me Laboratory Data Attestation: I reviewed the patient's lab results. Result diagrams: 12/05/18 18:25 12/05/18 18:25 Lab Results 12/05/18 12/05/18 12/05/18 Range/Units 18:25 18:25 18:25 WBC 11.73 H (4.8-10.8) K/uL RBC 4.20 (4.2-5.4) M/uL Hgb 12.0 (12.0-16.0) g/dL Hct 35.5 L (37-47) % MCV 84.5 (80-100) fL MCH 28.6 (25-34) pg MCHC 33.8 (32-36) g/dL RDW Std Deviation 38.1 (36.4-46.3) fL RDW Coeff of Lucina 12.5 (11.5-14.5) % Plt Count 252 (130-400) K/uL MPV 8.9 (7.4-10.4) fL Immature Gran % (Auto) 0.2 % Neut % (Auto) 79.1 % Lymph % (Auto) 10.1 % Todd % (Auto) 8.4 % Eos % (Auto) 1.9 % Baso % (Auto) 0.3 % Immature Gran # (Auto) 0.02 (0.00-0.02) K/uL Neut # (Auto) 9.30 H (1.4-6.5) K/uL Lymph # (Auto) 1.18 L (1.2-3.4) K/uL Todd # (Auto) 0.98 H (0.11-0.59) K/uL Eos # (Auto) 0.22 (0-0.5) K/uL Baso # (Auto) 0.03 (0-0.2) K/uL Sodium 136 (136-145) mmol/L Potassium 3.5 (3.5-5.1) mmol/L Chloride 103 (98-107) mmol/L Carbon Dioxide 25 (21-32) mmol/L Anion Gap 9.0 (3-11) BUN 9 (7-18) mg/dl Creatinine 0.84 (0.6-1.2) mg/dl Est Cr Clr Drug Dosing 116.3 ml/min Est GFR ( Amer) 98.0 Est GFR (Non-Af Amer) 84.5 BUN/Creatinine Ratio 10.9 (10-20) Glucose 117 H (70-99) mg/dl Lactate 1.4 (0.4-2.0) mmol/L Calcium 8.7 (8.5-10.1) mg/dl Total Bilirubin 0.5 (0.2-1) mg/dl AST 31 (15-37) U/L ALT 34 (12-78) U/L Alkaline Phosphatase 122 H (45-117) U/L Total Protein 7.2 (6.4-8.2) gm/dl Albumin 3.4 (3.4-5.0) gm/dl Globulin 3.8 (2.5-4.0) gm/dl Albumin/Globulin Ratio 0.9 (0.9-2) Lipase 101 (73-393) U/L Urine Color Urine Appearance (Clear) Urine pH (4.5-7.5) Ur Specific [place] (1.000-1.030) Urine Protein (Negative) Urine Glucose (UA) (Negative) Urine Ketones (Negative) Urine Blood (Negative) Urine Nitrite (Negative) Urine Bilirubin (Negative) Urine Urobilinogen (Negative) Ur Leukocyte Esterase (Negative) Urine WBC (Auto) (0-5) /hpf Urine RBC (Auto) (0-4) /hpf U Hyaline Cast (Auto) (0-5) /lpf U Epithel Cells (Auto) (0-5) /lpf Urine Bacteria (Auto) (Negative) POC Ur Test (NEG) 02/12/19 02/12/19 Range/Units 18:40 18:40 WBC (4.8-10.8) K/uL RBC (4.2-5.4) M/uL Hgb (12.0-16.0) g/dL Hct (37-47) % MCV (80-100) fL MCH (25-34) pg MCHC (32-36) g/dL RDW Std Deviation (36.4-46.3) fL RDW Coeff of Lucina (11.5-14.5) % Plt Count (130-400) K/uL MPV (7.4-10.4) fL Immature Gran % (Auto) % Neut % (Auto) % Lymph % (Auto) % Todd % (Auto) % Eos % (Auto) % Baso % (Auto) % Immature Gran # (Auto) (0.00-0.02) K/uL Neut # (Auto) (1.4-6.5) K/uL Lymph # (Auto) (1.2-3.4) K/uL Todd # (Auto) (0.11-0.59) K/uL Eos # (Auto) (0-0.5) K/uL Baso # (Auto) (0-0.2) K/uL Sodium (136-145) mmol/L Potassium (3.5-5.1) mmol/L Chloride (98-107) mmol/L Carbon Dioxide (21-32) mmol/L Anion Gap (3-11) BUN (7-18) mg/dl Creatinine (0.6-1.2) mg/dl Est Cr Clr Drug Dosing ml/min Est GFR ( Amer) Est GFR (Non-Af Amer) BUN/Creatinine Ratio (10-20) Glucose (70-99) mg/dl Lactate (0.4-2.0) mmol/L Calcium (8.5-10.1) mg/dl Total Bilirubin (0.2-1) mg/dl AST (15-37) U/L ALT (12-78) U/L Alkaline Phosphatase (45-117) U/L Total Protein (6.4-8.2) gm/dl Albumin (3.4-5.0) gm/dl Globulin (2.5-4.0) gm/dl Albumin/Globulin Ratio (0.9-2) Lipase (73-393) U/L Urine Color Dark Yellow Urine Appearance Turbid H (Clear) Urine pH 6.5 (4.5-7.5) Ur Specific [place] 1.019 (1.000-1.030) Urine Protein 1+ H (Negative) Urine Glucose (UA) Negative (Negative) Urine Ketones Negative (Negative) Urine Blood 2+ H (Negative) Urine Nitrite Positive H (Negative) Urine Bilirubin Negative (Negative) Urine Urobilinogen Negative (Negative) Ur Leukocyte Esterase 3+ H (Negative) Urine WBC (Auto) >30 H (0-5) /hpf Urine RBC (Auto) 10-30 H (0-4) /hpf U Hyaline Cast (Auto) 1-5 (0-5) /lpf U Epithel Cells (Auto) >30 H (0-5) /lpf Urine Bacteria (Auto) 4+ H (Negative) POC Ur Test NEG (NEG) Imaging Data Radiologist's Impression: Radiology results as stated below per my review and the radiologist's interpretation: XR KUB CLINICAL HISTORY: pain, retained contrast?, stone/hydro COMPARISON STUDY: CT 12/05/2018 FINDINGS: Matthews catheter placed in the bladder. No evidence for hydronephrosis based on this exam. Nonobstructive bowel pattern. IMPRESSION: No evidence for hydronephrosis post Matthews catheter insertion. The above report was generated using voice recognition software. It may contain grammatical, syntax or spelling errors. Electronically signed by: Haja Mckenna M.D. 12/05/2018 9:[address] abd pelvis IV con only CT DOSE: 1416.75 mGy.cm HISTORY: Flank pain right flank pain fever, ? stone vs infection TECHNIQUE: Multiaxial CT images of the abdomen and pelvis were performed following the use of intravenous contrast. A dose lowering technique was utilized adhering to the principles of ALARA. COMPARISON STUDY: 10/06/2008 FINDINGS: Lung bases are clear. Liver is uniform in appearance. Prior cholecystectomy. Spleen is unremarkable. Left renal peripelvic cyst unchanged. Mild right renal hydroureteronephrosis. Slight enhancement of the right ureter urothelial epithelium. A well-defined obstructing calculus is not seen. Differential considerations include a nonvisualized calculus, right renal pyelonephritis, versus the possibility of recently passed calculus. Bladder is mildly distended. There are no definite bladder calcifications. Nonobstructive bowel pattern. Normal appendix. IMPRESSION: 1. Nonspecific right renal hydroureteronephrosis. 2.. Right ureter is moderately distended to the level of the low right soft tissue pelvis although an obstructing etiology is not confirmed. 3. Diagnostic considerations include recently passed calculus, pyelonephritis, versus the possibility of nonvisualized punctate calcification. The above report was generated using voice recognition software. It may contain grammatical, syntax or spelling errors. Electronically signed by: Haja Mckenna M.D. 12/05/2018 7:50 PM Blood Pressure Blood Pressure Findings: Normal blood pressure Blood Pressure Disposition: further management by hospitalist MDM Narrative 43-year-old female presenting today complaining of fever and right flank and right abdominal pain. Prior cholecystectomy. Endorses right flank pain as well as some cloudy urine. Urine symptoms started about 2 weeks ago worsening over the last 3 days with fever today. Vomiting with nausea. Some home Zofran with minimal improvement. Concerned this could be possible pyelonephritis versus nephrolithiasis. Does not seem gynecological in origin based on its location and her symptoms. Negative . Given fluids and pain medicine and antiemetics. CT scan completed of the abdomen pelvis. Does not seem consistent with appendicitis or perforation. Not grossly septic but lactate and cultures were obtained. Slight leukocytosis noted along with grossly positive urine negative lactate level. No evidence of LFT abnormalities of significance or pancreatitis. CT abdomen pelvis does not show any acute kidney stone however some hydronephrosis questionably pyelonephritis versus recently passed stone versus nonvisualized calcification. Seems consistent with likely UTI progressive to pyelonephritis. No history of resistant UTI. Patient still having significant nausea and feels unwell. Discussed the CT with urology; catheter placed for bladder decompression and KUB did not show an obstructive pathology. Given cefepime. Not grossly septic but given her complaint feel that observation overnight is warranted discussed with hospitalist and patient. Impression & Plan Pyelonephritis Discharge Plan Visit Data *Final* Discharge Date/Time: 12/05/18 22:30 Chief Complaint: Kidney Stone Stated Complaint: POSSIBLE KIDNEY STONES, FEVER OF 104 ED Provider: James Small Discharge Problem: Pyelonephritis Patient Disposition: Admitted As Inpatient Condition: Fair Discharge Instructions Interventions: ED Discharge Assessment Last Done: 12/05/18 22:30 The scribe's documentation has been prepared under my direction and personally reviewed by me in its entirety. I confirm that the note above accurately reflects all work, treatment, procedures, and medical decision making performed by me.
[2018-12-06] MEDS: ONDANSETRON INJ 2 MG/ML 2 ML VIAL IV PRN ×3 (04:51→17:44)
[2018-12-06] MEDS: HYDROmorphone INJ 0.5 MG/0.5 ML SYR IV PRN ×6 (04:51→23:55)
[2018-12-06 06:21] LABS: Basophils # (auto) 0.02 K/uL (0-0.2); Basophils % (auto) 0.2 %; Eosinophils # (auto) 0.09 K/uL (0-0.5); Eosinophils % (auto) 1.1 %; Hematocrit (blood only) 33.6 % (37-47); Hemoglobin 11.1 g/dL (12.0-16.0); Immature Granulocytes # (auto) 0.02 K/uL (0.00-0.02); Immature Granulocytes % (auto) 0.2 %; Lymphocytes # (auto) 1.01 K/uL (1.2-3.4); Lymphocytes % (auto) 12.2 %; Mean Corpuscular Volume 86.2 fL (80-100); Mean Platelet Volume 8.8 fL (7.4-10.4); Monocytes % (auto) 10.8 %; Neutrophils # (auto) 6.26 K/uL (1.4-6.5); Neutrophils % (auto) 75.5 %; Platelet Count 242 K/uL (130-400); RDW Coefficient of Variation 12.8 % (11.5-14.5); RDW Standard Deviation 40.3 fL (36.4-46.3)
[2018-12-06 06:56] LABS: BUN Creatinine Ratio 13.6 (10-20); Calcium 7.9 mg/dl (8.5-10.1); Creatinine Clr Calc Pharmacy 143.6 ml/min; Est GFR (African American) 123.3; Est GFR (Non-African American) 106.4; Potassium 3.6 mmol/L (3.5-5.1)
[2018-12-06] MEDS: CEFEPIME 1,000 MG in SYRINGE 0 ML IV SCH ×2 (09:28→22:04)
[2018-12-06] MEDS: SODIUM CHLORIDE 0.9% 1000ML 1,000 ML IV SCH ×2 (11:08→22:04)
[2018-12-06] MEDS: ACETAMINOPHEN 325 MG TAB PO PRN (13:19)
[2018-12-06] MEDS ORDERED: TAMSULOSIN HCL 0.4 MG CAP PO ONE (16:19)
--- NOTE | 2018-12-06 23:54 | Hospitalist Progress Note ---
Date of Service December 06, 2018 Assessment & Plan (1) Pyelonephritis: Patient had temp on monring. leukocytosis with WBC=11.73 on admission, This improved today to 8. CT with possible pyelonephritis. Will continue on current antibiotics. Awaiting cultures. -Cefepime 1gm IV BID -will remove ravi -Nausea control with Zofran PRN -Pain control with Dilaudid and Toradol PRN Hydronephrosis appears to have resolved. Will obtain an ultrasound to look for stone and start tamsulosin. (2) Hydronephrosis: Concern for possible stone initially. Ravi catheter placed in ER. KUB obtained after Ravi placement with no persistent evidence of hydronephrosis. Doubt presence of stone. Removed ravi today. -Strain urine -Pain and nausea control as above -Consider Urology consultation if patient's clinical condition declines or if suspicion for stone as noted above. removed ravi. (3) Migraine: Chronic. Stable (4) GERD (gastroesophageal reflux disease): Chronic. Stable Ppx - low risk for DVT, encourage ambulation Code - Full Dispo - admit to medical floor Spent 35 minutes in management of patient. Subjective Patient reports still having back pain on the right. Patient also reports having nausea which is controlled with the zofran. Patient is also asking when she can have her ravi removed. Constitutional: no fever and no sweats Eyes: no blind spots and no diplopia Ear, Nose, Mouth, Throat: no ear pain and no dizziness Respiratory: no cough and no dyspnea Cardiovascular: no chest pain and no radiating jaw, neck or arm pain Gastrointestinal: no abdominal pain Genitourinary (Female): no dysuria Musculoskeletal: + back pain Integumentary: no acne Psychiatric: no behavioral changes Physical Exam 2 Vital Signs (Past 24 Hours): Last Vital Signs Temp 36.6 C 12/06/18 22:19 Pulse 77 12/06/18 22:19 Resp 18 12/06/18 22:19 BP 87/54 L 12/06/18 22:19 Pulse Ox 98 12/06/18 22:19 Physical Exam: General: patient resting comfortably, NAD, in mild pain, non- toxic in appearance, AA&O x 4 Skin: warm, dry, intact, no rashes or lesions HEENT: NC/AT, PERRL, EOMI, anicteric sclera, conjunctiva without injection, external ear normal to inspection and nontender, nares patent, moist mucus membranes, dentition intact, no oropharyngeal lesions, neck supple, trachea midline, no LAD, no thyromegaly, no JVD Heart: +S1/S2, regular, no m/r/g Lungs: equal air entry bilaterally, no rales/rhonchi/wheezes Abd: +BS, soft, +right CVA tenderness, no tenderness in abd.. no masses/ organomegaly/ascites Ext: warm, 2+ pulses in UE/LE bilaterally, no clubbing/cyanosi, trace pitting edema of bilateral LE Neuro: nonfocal, patient AA&O x 4, speech intact, no facial droop, moving all extremities on command with equal strength 5/5 _ (1) Hydronephrosis Hydronephrosis type: unspecified Qualified Code(s): N13.30 - Unspecified hydronephrosis (2) Migraine Intractability: not intractable Migraine type: unspecified Status migrainosus presence: without status migrainosus Qualified Code(s): G43.909 - Migraine, unspecified, not intractable, without status migrainosus (3) GERD (gastroesophageal reflux disease) Esophagitis presence: esophagitis presence not specified Qualified Code(s): K21.9 - Gastro-esophageal reflux disease without esophagitis
[2018-12-07] MEDS: KETOROLAC TROMETHAMINE 15 MG/ML VIAL IV PRN ×3 (03:43→15:59)
--- NOTE | 2018-12-07 07:18 | Ultrasound Report ---
EXAMINATION: RENAL ULTRASOUND CLINICAL HISTORY: Right-sided hydronephrosis COMPARISON STUDY: CT scan dated 12/05/2018 FINDINGS: The right kidney measures 11.8 cm. The left kidney measures 13.1 cm. There is no evidence of hydronephrosis. There are no renal masses. The right ureteral jet was not visualized. There was ringdown artifact in the anterior bladder wall. Intraluminal gas cannot be excluded. IMPRESSION : 1. No ultrasonographic evidence of hydronephrosis 2. Nonvisualization of the right ureteral jet. 3. Subtle ringdown artifact within the anterior bladder. Intraluminal gas cannot be excluded. Electronically signed by: Sacha Figueroa M.D. 12/07/2018 7:16 AM
[2018-12-07] MEDS: ACETAMINOPHEN 325 MG TAB PO PRN ×3 (07:38→17:59)
[2018-12-07] MEDS: SODIUM CHLORIDE 0.9% 1000ML 1,000 ML IV SCH ×2 (07:45→18:00)
[2018-12-07] MEDS: CEFEPIME 1,000 MG in SYRINGE 0 ML IV SCH (08:43)
[2018-12-07] MEDS ORDERED: LACTATED RINGER'S 1,000 ML IV SCH (09:00)
[2018-12-07 09:34] LABS: Hematocrit (blood only) 30.9 % (37-47); Hemoglobin 10.2 g/dL (12.0-16.0); Mean Corpuscular Volume 85.8 fL (80-100); Mean Platelet Volume 8.4 fL (7.4-10.4); Platelet Count 185 K/uL (130-400); RDW Coefficient of Variation 12.5 % (11.5-14.5); RDW Standard Deviation 39.1 fL (36.4-46.3)
[2018-12-07 10:00] LABS: BUN Creatinine Ratio 13.9 (10-20); Calcium 7.5 mg/dl (8.5-10.1); Est GFR (African American) 126.4; Est GFR (Non-African American) 109.1; Potassium 3.3 mmol/L (3.5-5.1)
[2018-12-07] MEDS: ONDANSETRON INJ 2 MG/ML 2 ML VIAL IV PRN (15:59)
[2018-12-07] MEDS ORDERED: cefTRIAXone SODIUM 1,000 MG in SODIUM CHLOR 0.9% AD-VAN 50 ML IV SCH (17:00)
[2018-12-07] MEDS: GABAPENTIN 300 MG CAP PO SCH (20:10)
[2018-12-07] MEDS: HYDROmorphone INJ 0.5 MG/0.5 ML SYR IV PRN (20:13)
--- NOTE | 2018-12-07 22:59 | Hospitalist Progress Note ---
Date of Service December 07, 2018 Assessment & Plan (1) Pyelonephritis: Patient is aferbrile today. However patient continues to be tachycardic with a HR over 90. leukocytosis with WBC=11.73 on admission, This improved today to 7 CT with possible pyelonephritis. U/S shows no signs of hydronephrosis. Culture show e. coli, will switch to ceftriaxone. -Cefepime 1gm IV daily -Nausea control with Zofran PRN -Pain control with Dilaudid and Toradol PRN Hydronephrosis appears to have resolved. Will continue tamsulosin. (2) Hydronephrosis: As noted above, will hold off urolgy consult. as noted above. removed ravi. (3) Migraine: Chronic. Stable (4) GERD (gastroesophageal reflux disease): Chronic. Stable Ppx - low risk for DVT, encourage ambulation Code - Full Spent 25 minutes in management of patient. Subjective Patient reports that she is still having chills. D/W nurse patient is tachycardic. Patient reports less back pain. ROS: Constitutional: no fever and no sweats Eyes: no blind spots and no diplopia Ear, Nose, Mouth, Throat: no ear pain and no dizziness Respiratory: no cough and no dyspnea Cardiovascular: no chest pain and no radiating jaw, neck or arm pain Gastrointestinal: no abdominal pain Genitourinary (Female): no dysuria Musculoskeletal: + back pain Integumentary: no acne Psychiatric: no behavioral changes Musculoskeletal: + back pain Physical Exam 2 Vital Signs (Past 24 Hours): Last Vital Signs Temp 36.6 C 12/07/18 15:28 Pulse 82 12/07/18 15:28 Resp 18 12/07/18 15:28 BP 137/72 12/07/18 15:28 Pulse Ox 98 12/07/18 15:28 Physical Exam: General: patient resting comfortably, NAD, in mild pain, non- toxic in appearance, AA&O x 4 Skin: warm, dry, intact, no rashes or lesions HEENT: NC/AT, PERRL, EOMI, anicteric sclera, conjunctiva without injection, external ear normal to inspection and nontender, nares patent, moist mucus membranes, dentition intact, no oropharyngeal lesions, neck supple, trachea midline, no LAD, no thyromegaly, no JVD Heart: +S1/S2, regular, no m/r/g Lungs: equal air entry bilaterally, no rales/rhonchi/wheezes Abd: +BS, soft, +decreased right CVA tenderness, no tenderness in abd.. no masses/organomegaly/ascites Ext: warm, 2+ pulses in UE/LE bilaterally, no clubbing/cyanosi, trace pitting edema of bilateral LE Neuro: nonfocal, patient AA&O x 4, speech intact, no facial droop, moving all extremities on command with equal strength 5/5 _ (1) Hydronephrosis Hydronephrosis type: unspecified Qualified Code(s): N13.30 - Unspecified hydronephrosis (2) Migraine Intractability: not intractable Migraine type: unspecified Status migrainosus presence: without status migrainosus Qualified Code(s): G43.909 - Migraine, unspecified, not intractable, without status migrainosus (3) GERD (gastroesophageal reflux disease) Esophagitis presence: esophagitis presence not specified Qualified Code(s): K21.9 - Gastro-esophageal reflux disease without esophagitis
[2018-12-08] MEDS: ACETAMINOPHEN 325 MG TAB PO PRN (04:15)
[2018-12-08] MEDS: SODIUM CHLORIDE 0.9% 1000ML 1,000 ML IV SCH (04:15)
[2018-12-08] MEDS: GABAPENTIN 300 MG CAP PO SCH (08:49)
--- NOTE | 2018-12-17 22:42 | Discharge Summary ---
Date of Service December 08, 2018 Admission HPI Per Admitting Provider Patient is a 43yo C female with history of Migraine, GERD presenting with possible pyelonephritis. She reports two weeks of urinary complaints, dysuria and sharp/stabbing pain with urination. Yesterday 12/04/18 she developed worsening urinary discomfort, pain in the right flank with radiation into the groin. Fevers at home to 103.6, nausea with 2 episodes of non-bloody/non- bilious vomiting and needing to strain to urinate as well as feeling disoriented. Patient had a syncopal episode at home this afternoon which prompted her to come to the ER. She reports that she was walking to the kitchen when she became light headed, her vision became dark and tunneled and she lowered herself to the floor. The episode was witnessed by her daughter who reported to seizure activity, incontinence. Patient was blacked out for less than one minute. No additional complaints at this time. She is still having discomfort in the right flank to suprapubic region. ER Course: Phenergan, Dilaudid, Cefepime, NSS, Morphine, Toradol, Zofran Principal Diagnosis pyelonephritis Discharge Exam General: patient resting comfortably, NAD, in mild pain, non-toxic in appearance, AA&O x 4 Skin: warm, dry, intact, no rashes or lesions HEENT: NC/AT, PERRL, EOMI, anicteric sclera, conjunctiva without injection, external ear normal to inspection and nontender, nares patent, moist mucus membranes, dentition intact, no oropharyngeal lesions, neck supple, trachea midline, no LAD, no thyromegaly, no JVD Heart: +S1/S2, regular, no m/r/g Lungs: equal air entry bilaterally, no rales/rhonchi/wheezes Abd: +BS, soft, +decreased right CVA tenderness, no tenderness in abd.. no masses/organomegaly/ascites Ext: warm, 2+ pulses in UE/LE bilaterally, no clubbing/cyanosi, trace pitting edema of bilateral LE Neuro: nonfocal, patient AA&O x 4, speech intact, no facial droop, moving all extremities on command with equal strength 5/5 Discharge Data Allergies Allergy/AdvReac Type Severity Reaction Status Date / Time No Known Drug Allergies Allergy Unknown NONE Verified 08/22/18 09:33 carrot AdvReac Unknown GI SYMPTOMS Verified 08/22/18 09:33 chicken derived AdvReac Unknown GI UPSET Verified 08/22/18 09:33 corn AdvReac Unknown GI SYMPTOMS Verified 08/22/18 09:33 grape AdvReac Unknown GI SYMPTOMS Verified 08/22/18 09:33 potato AdvReac Unknown GI SYMPTOMS Verified 08/22/18 09:33 Consultations 12/05/18 20:33 ED Decision to Admit Stat Ordered Studies 12/05/18 18:16 CT abd pelvis IV con only Stat 12/07/18 US renal/blad retro comp Routine Hospital Course (1) Pyelonephritis: Patient is aferbrile for over 24 hours. Psyient is no longer tachycardic. leukocytosis with WBC=11.73 on admission, This improved to 7 CT with possible pyelonephritis. U/S shows no signs of hydronephrosis. Culture show e. coli, switched to ceftriaxone. -Cefepime 1gm IV daily initially. -will discharge on oral cephalosporin. -Nausea control with Zofran PRN -Pain control with Dilaudid and Toradol PRN. Vidhya pain medicine at discharge. Hydronephrosis appears to have resolved. Will continue tamsulosin for short term. (2) Hydronephrosis: As noted above, will hold off urolgy consult. as noted above. removed ravi. imaging showed that this problem resolved (3) Migraine: Chronic. Stable (4) GERD (gastroesophageal reflux disease): Chronic. Stable Ppx - low risk for DVT, encourage ambulation Code - Full Total Time Total Time Spent Total Time Spent (In Minutes): 35 Total Time Includes: Examination of the Patient, Discharge Planning and Medication Reconciliation Discharge Plan Discharge Items Patient Disposition: Home - Self-Care Reason For Visit: PYELONEPHRITIS Discharge Diagnosis: Pyelonephritis Condition: Fair Discharge Goals: Decrease discomfort and Improve function Activity: Resume your previous activity Non-emergency contact: Primary Care Provider Call non-emergency contact if: you have any medication questions Follow-up/Referrals: Augustin Britt MD [Primary Care Provider] - 12/14/18 2:30 pm (Please, follow up with Dr. Britt on December 14 at 2:30 pm. *If you need to change this appointment, call the office at [phone].) Diet: Regular Addtl Provider Instructions: You were diagnosed with a Kindney infection. You were treated with antibiotics. It appears you may have had a kidney stone. But this has passed. Will recommend followup with your PCP. Complete 10 more days of antibiotics. Prescriptions: New cefpodoxime 200 mg tablet 200 mg PO Q12H Qty: 20 RF: 0 tamsulosin 0.4 mg capsule 0.4 mg PO DAILY Qty: 7 RF: 0 Continue gabapentin 300 mg Capsule 900 mg PO TID RF: 0 ondansetron 8 mg Tablet,Disintegrating 8 mg PO TID PRN (Reason: Nausea) RF: 0 Stand-Alone Forms: [facility] Discharge Orders: Discharge Order (Routine); Ordered 12/08/18 Ordered By: aPvel Granger Admission Data Admit Date/Time: 12/05/18 21:54 Attending Provider: Pavel Granger Admit Provider: Lourdes Avila Primary Care Provider: Augustin Britt Other Providers: Lourdes Avila Service: Surgical Services Other Interventions: Discharge Summary Assessment (RN) Last Done: 12/08/18 11:39 DC Date/Time DO NOT enter until pt leaves facility: 12/08/18 12:47
== END 2018-12-08 12:47 | disposition home or self-care (01) | DRG 690 ==
LOC: ED 17:55 → SUATTDRO 21:54 → 3N 21:54